=== PATIENT | female | born 1945 | race Caucasian/White ===

== ENCOUNTER → 2016-03-15 | Outpatient (CLI) | payer OTHER | LOC: BHFA 08:30 | PROVIDERS: ATTEND Internal Medicine Cardiovascular Disease | DX: I34.0 Nonrheumatic mitral (valve) insufficiency (principal); I27.2 Other secondary pulmonary hypertension | CPT/HCPCS: 78452; 93017; A9500; J2785 ==

== ENCOUNTER → 2016-03-26 | Outpatient (CLI) | payer OTHER | LOC: BHFA 15:30 | PROVIDERS: ATTEND Internal Medicine | DX: I34.0 Nonrheumatic mitral (valve) insufficiency (principal) ==

== ENCOUNTER 2016-04-19 07:40 | Day surgery (SDC) | payer OTHER ==
[2016-04-19] MEDS ORDERED: FAMOTIDINE 20 MG TAB PO ONE (07:46)
[2016-04-19] MEDS ORDERED: diphenhydrAMINE 25 MG CAP PO ONE (07:46)
[2016-04-19] MEDS ORDERED: DIAZEPAM 5 MG TAB PO ONE (07:46)
[2016-04-19] MEDS ORDERED: NS 1,000 ML IV ONE (07:46)
[2016-04-19] MEDS ORDERED: ASPIRIN EC 325 MG TAB PO ONE (07:46)
--- NOTE | 2016-04-19 08:10 | CPEKG ---
Heart Rate: 61 RR Interval: 984 P-R Interval: 164 QRSD Interval: 96 QT Interval: 416 QTC Interval: 419 P [place]: 73 QRS [place]: 32 T Wave [place]: 37 EKG Severity - NORMAL ECG - EKG Impression: SINUS RHYTHM EKG Impression: DIFFUSE ST DEPRESSION, CONSIDER ISCHEMIA Electronically Signed By: Pattie Valles 19-Apr-2016 10:24:22
[2016-04-19 08:20] LABS: % IMMATURE GRANULYOCYTES 0.2 % (0.0-1.1); ABSOLUTE IMMATURE GRANULOCYTES 0.02 10^3/uL (0.00-0.10); ADD DIFF? NO; ADD MORPH? NO; ADD SCAN? NO; ATYPICAL LYMPHOCYTE FLAG 10 (0-99); FRAGMENT RBC FLAG 0 (0-99); HEMATOCRIT 39.2 % (38.0-47.0); HEMOGLOBIN 13.1 g/dL (12.6-16.3); LEFT SHIFT FLG 0 (0-99); LIPEMIA HEMOLYSIS FLAG 80 (0-99); MEAN CELL HEMOGLOBIN 33.1 pg (27.9-34.1); MEAN CELL HEMOGLOBIN CONCENTR. 33.4 g/dL (32.4-36.7); MEAN PLATELET VOLUME 9.1 fL (8.7-11.7); PLATELET CLUMPS FLAG 0 (0-99); PLATELET COUNT 278 10^3/uL (150-400); RED BLOOD CELL COUNT 3.96 10^6/uL (4.18-5.33); RED CELL DISTRIBUTION WIDTH 13.9 % (11.5-15.2)
[2016-04-19 08:33] LABS: INR 0.94 (0.83-1.16); PROTIME(PATIENT) 12.5 SEC (12.0-15.0)
[2016-04-19 08:38] LABS: ANION GAP 12 mEq/L (8-16); CALCIUM 10.2 mg/dL (8.5-10.4); CARBON DIOXIDE 25 mEq/l (22-31); CHLORIDE 102 mEq/L (97-110); CHOLESTEROL 232 mg/dL (140-220); CREATININE 0.6 mg/dL (0.6-1.0); GLOMERULAR FILTRATION RATE > 60; GLUCOSE 87 mg/dL (70-100); MAGNESIUM 2.2 mg/dL (1.6-2.3); POTASSIUM 4.4 mEq/L (3.5-5.2); SODIUM 139 mEq/L (134-144); TRIGLYCERIDE 95 mg/dL (35-135); VERY LOW DENSITY LIPOPROTEINS 19 mg/dL (8-25)
[2016-04-19] MEDS ORDERED: LIDOCAINE 1% 30 ML SDV ONE (08:45)
[2016-04-19] MEDS ORDERED: IOPAMIDOL (ISOVUE-370) 150 ML BTL IV ONE ×2 (08:45→09:27)
[2016-04-19] MEDS ORDERED: MIDAZOLAM 2 MG/2 ML VIAL ONE (08:45)
[2016-04-19] MEDS ORDERED: fentaNYL 100 MCG/2 ML INJ ONE (08:45)
[2016-04-19 09:02] LABS: CHOLESTEROL/HDL RATIO 1.92 RATIO (1.00-4.44); HIGH DENSITY LIPOPROTEIN 121 mg/dL (40-85); LDL/HDL RATIO 0.76 RATIO (1.00-3.22); LOW DENSITY LIPOPROTEIN 92 mg/dL (80-100); NON-HIGH DENSITY LIPOPROTEIN 111 mg/dL (90-129)
[2016-04-19] MEDS ORDERED: NITROGLYCERIN 0.4 MG BTL SL PRN (09:49)
[2016-04-19] MEDS ORDERED: ATROPINE SULFATE 1 MG/10 ML SYR IVP PRN (09:49)
[2016-04-19] MEDS ORDERED: ONDANSETRON 4 MG/2 ML VIAL IVP PRN (09:49)
[2016-04-19] MEDS ORDERED: OXYCODONE/APAP 5/325 TAB PO PRN (09:49)
[2016-04-19] MEDS ORDERED: HYDROCODONE/APAP 5/325 TAB PO PRN (09:49)
--- NOTE | 2016-04-19 09:53 | PDDXCAT ---
Diagnostic Cath Note - . Date: 04/19/16 Sterile Preparation Technician: Andrea Indication: other (pre valve surgery assessment) - Procedure Access: right groin Procedure: left heart catheterization, coronary angiography, left ventriculogram , right heart catheterization - Materials Left Heart Cath size: 6F Left Heart Cath materials: standard multipack (JL4, JR4, pigtail) Right Heart Cath size: 7F Right Heart Cath materials: PWP catheter - Findings-Left Heart Catheterization LM: Short, quadfurcation into the LAD, ramus, LCX, and a small branch to atrium which feeds a fistula LAD: Medium sized vessel with small diagonal branches. No luminal irregularities noted. LCX: Medium sized vessel with principal obtuse margial, equal in magnitude to the LCX. No luminal irregularities RCA: Small, diminuative vessel without appreciable luminal irregularities noted. Ramus: Small vessel no luminal irregularities noted. EDP: 22 mm Hg LVEF: 65% Wall motion: normal wall motion - Findings-Right Heart Catheterization RA: 6 RV: 54/5/12 PA: 52/21/30 PAOP: 22 AO: 129/57/84 CO: 5.37 CI: 3.39 Complications: none Estimated blood loss: <50ml Closure method: Angioseal (vein was manual pressure closure) Assessment: 70 y/o female with HTN, pHTN (RVSP of ~70 mm Hg), HLP, COPD, psoriasis, and progressive pathology to the mitral valve without appreciable CAD noted on angiogram today. Right heart pressures were elevated, but not impressively on today's study. Fistula was noted with injection to the left system. Normal left ventricular systolic ejection fraction, and mild/moderate MR was noted with ventriculogram. Plan: Patient to maintain follow up with CT surgery (and have second opinion per reports). No critical CAD was noted. As an aside, there was a fistula appreciated on this study. Intervention: none
== END 2016-04-19 13:50 | disposition home or self-care (01) ==
LOC: FCATH 07:40
PROVIDERS: ATTEND Internal Medicine Cardiovascular Disease
PROC: B2151ZZ Fluoroscopy of Left Heart using Low Osmolar Contrast (ICD-10-PCS; principal; 2016-04-19)
PROC: 4A023N8 Measurement of Cardiac Sampling and Pressure, Bilateral, Percutaneous Approach (ICD-10-PCS; principal; 2016-04-19)
PROC: B2111ZZ Fluoroscopy of Multiple Coronary Arteries using Low Osmolar Contrast (ICD-10-PCS; principal; 2016-04-19)
DX: I34.0 Nonrheumatic mitral (valve) insufficiency (principal); R06.00 Dyspnea, unspecified; I27.2 Other secondary pulmonary hypertension; I10 Essential (primary) hypertension; E78.5 Hyperlipidemia, unspecified; I47.1 Supraventricular tachycardia; J44.9 Chronic obstructive pulmonary disease, unspecified; L40.9 Psoriasis, unspecified; Z82.49 Family history of ischemic heart disease and other diseases of the circulatory system; Z87.891 Personal history of nicotine dependence
CPT/HCPCS: C1760; J1644; J2250; J3010; Q9967

== ENCOUNTER → 2017-03-14 | Outpatient (CLI) | payer OTHER | LOC: BHCLAF 11:30 | PROVIDERS: ATTEND Internal Medicine Cardiovascular Disease | DX: R01.1 Cardiac murmur, unspecified (principal) | CPT/HCPCS: 93306-PO ==

== ENCOUNTER 2017-07-08 19:22 | Inpatient (IN) | payer OTHER, MEDICARE ==
--- NOTE | 2017-07-08 19:52 | EDPHY ---
General Time Seen by Provider: 07/08/17 19:41 Narrative: CHIEF COMPLAINT: concerned for blood clot HISTORY OF PRESENT ILLNESS: Patient presents with complaints of concern for blood clot. She has had increasing shortness of breath and some "lower oxygen numbers" intermittently over the past few days. She has decreased exercise capacity. She has increasing hypoxemia throughout the day, which is atypical for her. She typically wears supplemental oxygen only at night. She has no chest pain with exertion. She has complete resolution if she sits down and applies her oxygen. She was seen by primary care physician today with a positive D-dimer and "something on my chest x-ray that was behind my sternum." She was contacted by her PCP office and sent to the emergency department for possible PE. She has no other associated complaints or modifying factors. REVIEW OF SYSTEMS: Ten systems reviewed and are negative unless otherwise noted in the HPI PCP: Dr. Perez SPECIALISTS: Dr. Mendez, cardiology Dr. Haider, pulmonology PAST MEDICAL HISTORY: COPD, mitral valve regurgitation, macular degeneration PAST SURGICAL HISTORY: No recent surgeries SOCIAL HISTORY: Quit smoking 6 years ago. No drug or alcohol use. Lives independently with her spouse. FAMILY HISTORY: Noncontributory EXAMINATION General Appearance: Alert, no distress Head: normocephalic, atraumatic Eyes: Pupils equal and round, no conjunctival pallor or injection ENT, Mouth: Nasal cannula in place. Mucous membranes moist. Airway patent. Neck: Normal inspection, supple, non-tender Respiratory: Mild rhonchi. No wheezing, crackles or diminishment. Cardiovascular: Regular rate and rhythm no murmur Gastrointestinal: Abdomen is soft and nontender Back: non-tender, no bony abnormalities Neurological: A&O, nonfocal, normal gait Skin: Warm and dry, no rash Extremities: Nontender, no pedal edema Psychiatric: Mood and affect normal DIFFERENTIAL DIAGNOSES: Including but not limited to PE, pneumonia, bronchitis, pleurisy, mediastinal mass, adenocarcinoma, CHF MDM: 7:47 p.m. Increasing dyspnea with hypoxemia intermittently. The patient has no chest pain. She is in no acute distress but does have hypoxemia at rest. Her oxygenation is normal with 2 L nasal cannula. She is in no distress, work of breathing is normal and she does not need any positive pressure ventilation. I have ordered an i-STAT and a CT scan to expedite her imaging to rule out PE. I have reviewed her labs and imaging from other today. There is a chest x-ray with a retrosternal mass that is new. There is also evidence of possible CHF. 8:45 p.m. Patient has just returned from scanner. I re-evaluated she is resting comfortably. Vital signs remained stable. 9:10 p.m. Notified by radiologist Dr. Kent. Findings from the CT scan of the chest were discussed as documented. These include no evidence of PE, a pleural mass into the fissure, and possible cardiomyopathy. 9:25 p.m. Patient re-evaluated. Just the laboratory study and CT scan findings including an elevated BNP. She informs me that she last had an echocardiogram in March of this year. 10:20 p.m. Case discussed with hospitalist Dr. stacy. She will outpatient her service. She is admitted in stable condition. SUPERVISION: Patient was independently examined, but I discussed the case with my secondary supervising physician Dr. Kumari - Diagnostics Imaging Results: Imaging Impressions Chest/Thorax CTA 07/08/17 19:52 Impression: No evidence for pulmonary embolic disease. 2. Suspect cardiomyopathy with LAD CAD, but without evidence for acute CHF. 3. Emphysema. No pneumonia. 4. Right chest wall pleurally based mass invading the minor fissure. A PET CT would be helpful to assess for metabolic activity. Although this is new, the patient's old chest x-ray was in 2005. Results discussed with Ambrocio Bean at 9:03 PM. General information for patients regarding this examination can be found at [email or web address]. If you have questions or comments about this report, please contact me at [phone] (hospital) or [phone] (cell). - History Smoking Status: Former smoker - Objective Vital Signs: Initial Vital Signs Temperature (C) 98.1 F 07/08/17 19:30 Heart Rate 82 07/08/17 19:30 Respiratory Rate 20 07/08/17 19:30 Blood Pressure 144/83 H 07/08/17 19:30 O2 Sat (%) 89 L 07/08/17 19:30 O2 Delivery Mode Room Air Allergies/Adverse Reactions: Penicillins Allergy (Verified 07/08/17 19:30) Home Medications: Medication Instructions Recorded Ascorbic Acid [Vitamin C] 1,000 mg PO DAILY 04/19/16 Aspirin 325 mg (*) 325 mg PO DAILY 04/19/16 Calcium 1,000 mg PO DAILY 04/19/16 Mes28-Laf E 200 mg-20 Unit Sfg 200 mg PO DAILY 04/19/16 Glucosamine & Chondroitin Cap PO DAILY 04/19/16 Macuhealth PO DAILY 04/19/16 Multi For Her 50 Plus Softgel PO DAILY 04/19/16 VITAMIN D 1,000 mg PO DAILY 04/19/16 Laboratory Results: Laboratory Results 07/08/17 19:58 07/08/17 07/08/17 07/08/17 20:05 19:58 19:58 WBC 6.45 10^3/uL 10^3/uL (3.80-9.50) RBC 4.28 10^6/uL 10^6/uL (4.18-5.33) Hgb 13.5 g/dL g/dL (12.6-16.3) POC Hgb 15.0 gm/dL gm/dL (12.6-16.3) Hct 41.5 % % (38.0-47.0) POC Hct 44 % % (38-47) MCV 97.0 fL fL (81.5-99.8) MCH 31.5 pg pg (27.9-34.1) MCHC 32.5 g/dL g/dL (32.4-36.7) RDW 13.9 % % (11.5-15.2) Plt Count 316 10^3/uL 10^3/uL (150-400) MPV 9.4 fL fL (8.7-11.7) Neut % (Auto) 57.5 % % (39.3-74.2) Lymph % (Auto) 26.8 % % (15.0-45.0) [place] % (Auto) 10.7 % % (4.5-13.0) Eos % (Auto) 3.9 % % (0.6-7.6) Baso % (Auto) 0.8 % % (0.3-1.7) Nucleat RBC Rel Count 0.0 % % (0.0-0.2) Absolute Neuts (auto) 3.71 10^3/uL 10^3/uL (1.70-6.50) Absolute Lymphs (auto) 1.73 10^3/uL 10^3/uL (1.00-3.00) Absolute Monos (auto) 0.69 10^3/uL 10^3/uL (0.30-0.80) Absolute Eos (auto) 0.25 10^3/uL 10^3/uL (0.03-0.40) Absolute Basos (auto) 0.05 10^3/uL 10^3/uL (0.02-0.10) Absolute Nucleated RBC 0.00 10^3/uL 10^3/uL (0-0.01) Immature Gran % 0.3 % % (0.0-1.1) Immature Gran # 0.02 10^3/uL 10^3/uL (0.00-0.10) POC Sodium 138 mEq/L mEq/L (135-145) POC Potassium 3.8 mEq/L mEq/L (3.3-5.0) POC Chloride 102 mEq/L mEq/L (97-110) POC BUN 15 mg/dL mg/dL (7-23) POC Creatinine 0.8 mg/dL mg/dL (0.6-1.0) POC Glucose 82 mg/dL mg/dL (70-100) Troponin I < 0.012 ng/mL ng/mL (0.000-0.034) NT-Pro-B Natriuret Pep 4640 pg/mL H pg/mL (0-125) Medications Given: Discontinued Medications Sodium Chloride (Ns) 500 mls @ 0 mls/hr IV EDNOW ONE; Wide Open PRN Reason: Protocol Stop: 07/08/17 20:04 Last Admin: 07/08/17 20:32 Dose: 500 mls Point of Care Test Results: 07/08/17 20:05 POC Sodium 138 POC Potassium 3.8 POC Chloride 102 POC BUN 15 POC Creatinine 0.8 POC Glucose 82 Departure - Departure Disposition: [facility] Acute Clinical Impression: Pleural mass, Hypoxemia Dyspnea Qualifiers: Dyspnea type: shortness of breath Qualified Code(s): R06.02 - Shortness of breath; R06.00 - Dyspnea, unspecified; R06.01 - Orthopnea COPD (chronic obstructive pulmonary disease) Qualifiers: COPD type: unspecified COPD Qualified Code(s): J44.9 - Chronic obstructive pulmonary disease, unspecified Condition: Good Referrals: Carla Perez MD [Primary Care Provider] - As per Instructions
[2017-07-08] MEDS ORDERED: NS 500 ML IV ONE (20:03)
[2017-07-08] MEDS ORDERED: IOPAMIDOL (ISOVUE 370) 100 ML BTL IV ONE (20:10)
[2017-07-08 20:20] LABS: PLATELET COUNT 316 10^3/uL (150-400)
--- NOTE | 2017-07-08 20:32 | CPEKG ---
Heart Rate: 71 RR Interval: 845 P-R Interval: 188 QRSD Interval: 90 QT Interval: 412 QTC Interval: 448 P [place]: 81 QRS [place]: 61 EKG Severity - ABNORMAL ECG - EKG Impression: SINUS RHYTHM EKG Impression: PACs EKG Impression: NONSPECIFIC T ABNORMALITIES, LATERAL LEADS Electronically Signed By: Valeriy Kelley 09-Jul-2017 11:44:54
[2017-07-08] MEDS ORDERED: ACETAMINOPHEN 325 MG TAB PO PRN (22:44)
[2017-07-08] MEDS ORDERED: ONDANSETRON 4 MG/2 ML VIAL IVP PRN (22:44)
[2017-07-08] MEDS ORDERED: HYDROCODONE/APAP 5/325 TAB PO PRN (22:44)
[2017-07-08] MEDS ORDERED: IPRATROPIUM/ALBUTEROL 3 ML DEYVIAL IH PRN (22:44)
[2017-07-08] MEDS ORDERED: ALBUTEROL 3 ML DEYVIAL IH PRN (22:44)
[2017-07-09] MEDS: DILTIAZEM 30 MG TAB PO SCH ×4 (00:28→21:01)
[2017-07-09] MEDS: FLUTICASONE/SALMETER 250/50MCG DISKUS IH SCH ×3 (00:29→20:15)
[2017-07-09] MEDS ORDERED: predniSONE 20 MG TAB PO ONE ×2 (00:52→13:07)
[2017-07-09] MEDS: predniSONE 20 MG TAB PO SCH (01:25)
--- NOTE | 2017-07-09 02:38 | GHP ---
[f rep st] HISTORY AND PHYSICAL DATE OF ADMISSION: 07/08/2017 SOURCE: Patient provides history, appears reliable, her EMR was reviewed, and case discussed with [facility] hospitalist provider. CHIEF COMPLAINT: Shortness of breath, hypoxia. HISTORY OF PRESENT ILLNESS: This is a very pleasant 71-year-old female with past medical history sig nificant for COPD with oxygen dependence at bedtime, hypertension, severe pulmonary hypertension, las t RSVP of 70 mmHg, history of psoriasis, NSVT, coronary calcifications with a negative heart catheter ization 2016, and moderate mitral regurgitation, who presents to the emergency department today after a PCP visit with concerns for possible PE. The patient has had increasing shortness of breath for t he past 1-2 weeks. She denies any increased cough or production of sputum. She denies any fevers or chills. Patient has had increased oxygen requirements and increased dyspnea with exertion from her baseline. Her symptoms typically resolve with rest. She has never had any chest pain. No palpitati ons. No lightheadedness or presyncope. The patient was evaluated by PCP today and underwent outpati ent testing with x-ray, and found to have a positive D-dimer, as well as possible retrosternal mass. REVIEW OF SYSTEMS: GENERAL: No fevers, chills. SKIN: Patient with history of psoriasis on her lef t medial knee. She has a new area of erythema that is itching. She has central punctation and she r eports PCP thought perhaps she had an insect bite or spider bite. She denies any fevers, chills. No joint pain. No other rashes or sores reported. She does have some excoriations from a cat scratch. ENT: No congestion, sore throat. EYES: No acute changes in vision or ocular pain. CV: No chest pain, palpitations. RESPIRATORY: Patient with shortness of breath and cough as noted above. GI: No nausea, vomiting, abdominal pain, melena, hematochezia. : No dysuria or hematuria. MUSCULOSKE LETAL: No joint pains, myalgias. NEUROLOGIC: No numbness, tingling, headache, or focal deficits. Remainder of review of systems negative, except as noted above. ALLERGIES: Penicillin. HOME MEDICATIONS: As per EMR. Diltiazem 30 mg p.o. three times daily, atenolol 25 mg p.o. twice kayy ly, clonidine 0.2 mg p.o. at bedtime, rosuvastatin 5 mg p.o. Friday, Friday, Friday, Lasix 20 mg e very 2 days, acitretin 10 mg p.o. daily, potassium chloride 10 mEq p.o. every 2 days, Spiriva inhaler 18 mcg inhaled daily, Advair 250/50 mcg 1 puff inhaled twice daily, vitamin D3 at 1000 units p.o. da yolanda, albuterol/Ventolin inhaler 2 puffs inhaled q.4 hours p.r.n., multivitamin 1 tab p.o. daily, gluc osamine-chondroitin 2 tabs p.o. daily, calcium carbonate 1000 mg p.o. daily, aspirin 325 mg p.o. tyrone y, fish oil 2000 mg p.o. daily, vitamin C 500 mg p.o. daily, CoQ10 200 mg p.o. daily, Macular Health 1 tab p.o. daily. PAST MEDICAL HISTORY: Significant for COPD with oxygen dependence at bedtime; moderate mitral regurg itation; macular degeneration; history of cataracts with a lens replaced on the right; psoriasis; and a history of coronary calcifications on CT, but a negative cardiac cath; history of paroxysmal SVT; pulmonary nodule, left upper lobe, that had been stable; pulmonary hypertension, last [employer] noted of 70 ; hypertension; hyperlipidemia. PAST SURGICAL HISTORY: Cardiac cath, appendectomy, cholecystectomy, tonsillectomy, adenoidectomy, ri ght cataract extraction with lens replacement, and JOHN. FAMILY HISTORY: Significant for NC and hypertension. SOCIAL HISTORY: Patient is , lives with her . She quit smoking in 2011. She drinks a glass of wine with dinner every day. Denies any illicit drug use or marijuana use. CODE STATUS: Full. PHYSICAL EXAMINATION: VITAL SIGNS: Upon arrival to the emergency department, blood pressure 144/83, heart rate was 82, O2 saturation 89% on room air, with temperature of 36.7. CURRENT VITALS: Blood pressure 130/97, heart rate is 99-120s, variable, but nonsustained, sinus tachycardia with PACs, resp iratory rate 17, O2 saturation 93% on 2 L by nasal cannula, with a temperature of 36.4. GENERAL: No acute distress. Chronically ill-appearing female is sitting up on bed, awake, pleasant, slightly anx ious, but in fair spirits. HEAD: Normocephalic, atraumatic. EYES: Extraocular muscles are grossly intact. Pupils equal, round, reactive to light bilaterally and symmetric. Right lens reflex apprec iated. ENT: Mucous membranes are moist. No oropharyngeal erythema or exudates. No nasal discharge . NECK: Supple. Trachea midline. CV: Irregularly irregular rhythm with regular rate in the 80s t o 90s, slightly distant heart sounds. No murmurs appreciated. RESPIRATORY: Unlabored breathing, qu ite diminished on the right compared to the left. Bibasilar crackles are present. No wheezes or rho nchi appreciated. ABDOMEN: Positive bowel sounds, soft, nontender to palpation. No rebound, guardi ng, or masses appreciated. : No suprapubic tenderness to palpation. No Dodson catheter in place. EXTREMITIES: No cyanosis, clubbing, or edema appreciated. 1+ pedal pulses bilaterally and symmetric . MUSCULOSKELETAL: Patient able to sit up independently. Strength grossly normal. Strength 5/5 in upper and lower extremities while lying on bed. NEUROLOGIC: Grossly nonfocal. No facial drooping. Cranial nerves 2 through 12 intact and symmetric bilaterally. Moves extremities as noted above. S KIN: Patient with a few healing excoriations, bilateral lower extremities. On the left medial knee, there is a punctate area with surrounding erythema. No central clearing yet. Patient denies any pa in. No induration or fluctuance. PSYCHIATRIC: Patient does appear a little bit anxious. Concerned about plans for further evaluation of pleural mass, but overall thought process, content, and questi ons are all appropriate, and she is pleasant and cooperative. LABORATORY STUDIES: 1. WBC 6.45, H and H are 13.5, 41.5, MCV of 97, platelet count of 316. No bands. 2. Sodium is 138, potassium is 3.8, chloride 102, CO2 is unlisted, BUN 15, creatinine is 0.8, glucos e 82. Troponin is negative, BTNP is 4640. 3. EKG, reviewed myself, shows sinus rhythm with nonspecific T-wave changes in the inferior leads. PACs. Rate in the 70s. QTc is 436. IMAGING STUDIES: Report and image reviewed myself. CT/CTA of the chest negative for evidence of PE. Cardiomyopathy without evidence acute CHF. Emphysema. No pneumonia. Greatest involvement of the emphysema in the upper lobes. Right chest wall: Pleurally base mass invading the minor fissure. Chest x-ray from earlier in the day. Report and image reviewed, showing new cardiomegaly and pulmona ry vascular plethora. New anterior retrosternal soft tissue mass. ASSESSMENT AND PLAN: Pleasant 71-year-old female with past medical history significant for oxygen-de pendent emphysema, mitral regurgitation, hypertension, pulmonary hypertension, who presents to the em ergency department with increasing dyspnea, hypoxia, and findings of intrathoracic mass. 1. Pleural-based mass on the right along the right chest wall. The patient will be made n.p.o., exc ept for sips and medications. Further discussion with Radiology and Pulmonology, as per day team, fo r coordinated plan for tissue sampling. The patient's primary verify rep is Dr. Haider. 2. Chronic obstructive pulmonary disease with exacerbation. Patient with progressive dyspnea and hy poxia more than baseline. We will go ahead and provide patient with a dose of oral prednisone at thi s time, nebulizers, and inhaled steroids to be continued. Continue to titrate oxygen down as tolerat ed. Incentive spirometry as tolerated. 3. Cardiomegaly. Patient with known mitral regurgitation and pulmonary hypertension. The patient r eports a recent echocardiogram with Dr. Mendez. She does not appear decompensated radiographically o r clinically. Hold off on diuretic therapy for tonight. 4. Acute on chronic hypoxic respiratory failure. Continue supplemental oxygen, COPD treatment as no meryl above. Hold off on antibiotic therapy at this time. Patient is afebrile and white count is with in normal limits. 5. Tachycardia with premature atrial contractions. Patient with a rise in heart rate after my visit . She does appear slightly anxious regarding her new diagnosis. She did just receive her clonidine and diltiazem this evening. We will continue to monitor on telemetry. 6. Benign essential hypertension. Medications as noted above. 7. Hyperlipidemia. Resume patient's statin when med rec is available. 8. Fluid, electrolytes, nutrition. Hold off on IV fluids. Patient is tolerating oral intake at thi s point. We will continue sips and otherwise n.p.o. until plan is established per #1. Electrolytes monitored, replacement if needed. 9. Prophylaxis. SCDs. Holding anticoagulation pending decision on potential tissue sampling as abo ve. 10. Code status is full. DISPOSITION: Patient admitted to inpatient status at this time. Initially, patient will require man agement of her respiratory issues and stabilization, in addition to further evaluation of this new pl eural mass. Anticipate greater than 2-midnight stay. /[id number]/MODL
[2017-07-09 04:30] LABS: PLATELET COUNT 274 10^3/uL (150-400)
[2017-07-09] MEDS: TIOTROPIUM INHALER 18 MCG/DOSE 5 DOSE/MDI IH SCH (09:00)
[2017-07-09] MEDS ORDERED: FUROSEMIDE 20 MG TAB PO SCH (09:45)
[2017-07-09] MEDS ORDERED: POTASSIUM CL 10 MEQ TAB PO SCH (09:45)
[2017-07-09] MEDS: ASPIRIN EC 325 MG TAB PO SCH (11:09)
[2017-07-09] MEDS: CHOLECALCIFEROL VIT D3 1,000 UNITS TAB PO SCH (11:09)
[2017-07-09] MEDS: OMEGA-3 FATTY ACIDS 1,000 MG CAP PO SCH (11:09)
[2017-07-09] MEDS: MULTIVITAMINS 1 EACH TAB PO SCH (11:10)
[2017-07-09] MEDS: ASCORBIC ACID 500 MG TAB PO SCH (11:10)
[2017-07-09] MEDS: CALCIUM CARBONATE 500 MG TAB PO SCH (11:10)
[2017-07-09] MEDS ORDERED: ROSUVASTATIN CALCIUM 10 MG TAB PO SCH (12:00)
--- NOTE | 2017-07-09 12:44 | PDMN ---
Medical Necessity Medical necessity: Pt meets IP criteria per MD; est los >2 mn for eval/tx of acute on chronic respiratory failure, COPD exacerbation, cardiomegaly, tachycardia w/PACs & new pleural-based mass; admit for further workup/cardiac monitoring, Radiology/Pulmonology consults & respiratory supportive care; hx emphysema, mitral regurgitation, HTN, pulmonary HTN; per H&P & order 07/08/17
[2017-07-09] MEDS: ACITRETIN 10 MG PO SCH (13:36)
--- NOTE | 2017-07-09 14:10 | ASMTCMCOM ---
CM Note CM Note Notes: 07/09/2017 Case Management Note Discussed pt during rounds this morning. Pt admited with a new pleural mass, acute cadiomyopathy and hypoxemia. There are no therapy evals ordered at this time. Pt is and lives independently. Case Management d/c poc: anticipating independent with follow up as directed. Case Management available if needs change. Date Signed: 07/09/2017 02:09 PM Electronically Signed By:Tarah Reyes RN
[2017-07-09] MEDS: GLUCOSAMINE/CHONDROITIN CAP PO SCH (14:21)
--- NOTE | 2017-07-09 18:41 | HOSPPROG ---
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 Will continue ongoing bronchodilators and steroids here. She is able to ambulate somewhat better than before she came in but is requiring 24 hr oxygen at this time compared to nocturnal at home I reviewed her CT images in detail with Dr. Mike Shah. I have also reviewed the report from a CT scan that she had done several days ago at [facility] which indicated some right-sided pleural thickening it sounds like it is in the same location as the current abnormality on CT scan. However it does not describe any extension of that process into the interlobar septal which I do see on yesterday's CT scan here. As we are unable to compare the images directly and we are unable to get those images made available now we are going to recommend that she obtain images from [facility] and take them in with Dr. Haider in the clinic to compare with the current study. At the present time the process appears to be progressing, if at all, at a very slow and non aggressive pace. There is no indication for urgent biopsy at this time for this pleural based disease it has not spread into bone or parenchyma of the lung. PLANS: -continue bronchodilators and oral steroids -increase activity as tolerated -will continue treatment here in the hospital at this point as her COPD warrants inpatient care -of asked her to trying get images from her most recent CT scan at outside hospital on a disc to compare to the present CT which they can do with Dr. Haider in clinic This patient was seen by me today on multidisciplinary rounds as well as hospitals rounds. I spent greater than 45 min today with this patient and at the bedside and this time is all in addition to the some time spent earlier today by Dr. Maci moreau on her admission visit SUBJECTIVE: Some improvement in dyspnea but still having trouble ambulating despite wearing oxygen No chest pain or cough OBJECTIVE Vitals reviewed: Stable here so far without fever Toddler Guide, my review: Sinus Exam: alert oriented skin warm dry color ok resps mildly labored at rest on oxygen lungs very diminished but otherwise clear BSs heart regular abd soft nondistended nontender, bowel sounds present limbs warm, no edema iv site ok I reviewed her chest CT scan images from last night with Dr. Mike Shah of pulmonology. There is evidence of chronic obstructive disease. There is no acute pneumonia or heart failure or effusion. There is an area of chronic appearing pleural thickening focally in the right anterolateral chest wall. This process appears to now extend into the interlobar fissures in the right lung to a small degree but is not causing any atelectasis or other changes in the lung parenchyma. Objective: Vital Signs Temp Pulse Resp BP Pulse Ox 36.3 C 105 H 15 120/78 96 07/09/17 15:51 07/09/17 15:51 07/09/17 15:51 07/09/17 15:51 07/09/17 15:51 Laboratory Results 07/09/17 04:10 07/09/17 04:10 07/08/17 07/09/17 07/10/17 06:59 06:59 06:59 Intake Total 740 Output Total 800 400 Balance -60 -400 ICD10 Worksheet Patient Problems: Problems Problem Status Onset COPD (chronic obstructive pulmonary disease) Acute Dyspnea Acute Hypoxemia Acute Pleural mass Acute
[2017-07-10] MEDS: MULTIVITAMINS 1 EACH TAB PO SCH (09:02)
[2017-07-10] MEDS: predniSONE 20 MG TAB PO SCH (09:03)
[2017-07-10] MEDS: ASCORBIC ACID 500 MG TAB PO SCH (09:03)
[2017-07-10] MEDS: CHOLECALCIFEROL VIT D3 1,000 UNITS TAB PO SCH (09:03)
[2017-07-10] MEDS: DILTIAZEM 30 MG TAB PO SCH ×2 (09:03→15:46)
[2017-07-10] MEDS: ASPIRIN EC 325 MG TAB PO SCH (09:03)
[2017-07-10] MEDS: FLUTICASONE/SALMETER 250/50MCG DISKUS IH SCH (09:04)
[2017-07-10] MEDS: CALCIUM CARBONATE 500 MG TAB PO SCH (09:04)
[2017-07-10] MEDS: TIOTROPIUM INHALER 18 MCG/DOSE 5 DOSE/MDI IH SCH (09:04)
[2017-07-10] MEDS: ACITRETIN 10 MG PO SCH (12:57)
[2017-07-10] MEDS: GLUCOSAMINE/CHONDROITIN CAP PO SCH (15:46)
[2017-07-10] MEDS: OMEGA-3 FATTY ACIDS 1,000 MG CAP PO SCH (15:46)
[2017-07-10 16:21] VITALS: BP 158/82
--- NOTE | 2017-07-10 17:14 | PDDCSUM ---
Discharge Summary Discharge Summary: DISCHARGE DIAGNOSES: -COPD exacerbation -acute hypoxemic respiratory failure -possible enlargement of chronic pleural thickening in the right anterior chest based on CT, prior CTs unavailable for review and comparison during this hospitalization PROCEDURES: CT scan of chest with contrast showing absence of pulmonary emboli or pneumonia , question of progression of known chronic right pleural thickening HOSPITAL COURSE SUMMARY: This patient has long history of known not oxygen dependent COPD. She comes in with acute exacerbation with worsening dyspnea, inability to ambulate, and hypoxemia. There is no evidence of infection or heart failure. She had been taking all of her inhalers reliably. Patient was brought in the hospital and treated with prednisone and nebulized bronchodilators. She had a very good response and now is able to walk around her room without oxygen and walk in the hallway with oxygen. She does have oxygen at home but typically only uses it at night. This point she feels comfortable going back home. She did not require any diuresis. She does have known pulmonary hypertension. CT scan was done in the ER to assess for possible PE. Incidentally noted was possible increase in the dimensions of some pleural thickening that has been known for several years in the right chest. This was evaluated in the past by CT scans at the [facility], and we did not have the ability to do comparison of the images at this time. Therefore I had this hospital prepare a CD of her CT images from this stay and she will is obtaining the most recent CT images from [facility] and she will go to her credit coordinator Dr. Haider to reassess these to determine whether anything needs to be done. Overall my review of the CT images here does not show me what looks like any kind of very aggressive disease process a but will check either way. PENDING TEST RESULTS: None MEDICATION CHANGES: Prednisone 60 mg for 1 week then 40 mg for a week then 20 mg for week at which time she follows up with Dr. Haider FOLLOW-UP PLAN: With Dr. Haider on August 01 With her smelter liner on July 14 Greater than 35 minutes bedside and care coordination time today
--- NOTE | 2017-07-10 17:26 | ASDISCHSUM ---
Discharge Information Plan Status:Home with No Needs Medically Cleared to Leave:07/10/2017 Discharge Date:07/10/2017 CM D/C Disposition:Home, Routine, Self-Care ADT D/C Disposition:Home, Routine, Self-Care Projected Discharge Date:07/10/2017 Transportation at D/C:Family Discharge Delay Reason: Follow-Up Date:07/10/2017 Discharge Slot: Final Diagnosis: Placement Information Patient Contact Information Contact Name:VICENTA Relationship:Jordan Address:[address] City:[place] Alternate Phone: [facility]/Zip Code:[place] [address] Email: Financial Information Financial Class:Medicare Primary Plan Desc:MEDICARE INPATIENT Primary Plan Number:[id number] Secondary Plan Desc:CHER/ARLENE SUPPLEMENT Secondary Plan Number:[id number] Assessment Information LACE LACE Length of stay for Answers: 1 day current admission Acuity / Level of Answers: Yes Care: Did the patient have an inpatient admission? Comorbidities - select Answers: Chronic pulmonary disease all that apply Other Notes: HTN # of Emergency department Answers: 1-2 visits in the last 6 months Score: 8 Date Signed: 07/10/2017 05:23 PM Electronically Signed By:Tarah Reyes RN [facility] CM Progress Note CM Note CM Note Notes: 07/09/2017 Case Management Note Discussed pt during rounds this morning. Pt admited with a new pleural mass, acute cadiomyopathy and hypoxemia. There are no therapy evals ordered at this time. Pt is and lives independently. Case Management d/c poc: anticipating independent with follow up as directed. Case Management available if needs change. Date Signed: 07/09/2017 02:09 PM Electronically Signed By:Tarah Reyes RN Case Management Discharge Plan Note Case Management Discharge Discharge Order Complete? Answers: Yes Patient to Obtain Answers: Independently Medications Discharge Comments Notes: 07/10/2017 Case Management Note Pt to d/c independent with follow up as directed. Transitional Care to follow after d/c. Date Signed: 07/10/2017 05:25 PM Electronically Signed By:Tarah Reyes RN Intervention Information
== END 2017-07-10 18:07 | disposition home or self-care (01) | DRG 190 ==
LOC: F2W 23:36
PROVIDERS: ADMIT Family Medicine; ATTEND Family Medicine
DX: J44.1 Chronic obstructive pulmonary disease with (acute) exacerbation (principal); J96.01 Acute respiratory failure with hypoxia; I27.20 Pulmonary hypertension, unspecified; E86.9 Volume depletion, unspecified; I34.0 Nonrheumatic mitral (valve) insufficiency; I10 Essential (primary) hypertension; E78.5 Hyperlipidemia, unspecified; Z99.81 Dependence on supplemental oxygen; Z87.891 Personal history of nicotine dependence; Z82.49 Family history of ischemic heart disease and other diseases of the circulatory system
CPT/HCPCS: 71046-PO; 82947-QW; J7512; Q9967

== ENCOUNTER → 2017-07-08 | Outpatient (CLI) | payer OTHER, MEDICARE | LOC: CIMAGING 16:40 | PROVIDERS: ATTEND Family Medicine | DX: J44.9 Chronic obstructive pulmonary disease, unspecified (principal); I28.8 Other diseases of pulmonary vessels; R22.2 Localized swelling, mass and lump, trunk | CPT/HCPCS: 71046-PO ==

== ENCOUNTER → 2018-04-10 | Outpatient (CLI) | payer OTHER, MEDICARE | LOC: BHCLAF 14:00 | PROVIDERS: ATTEND Internal Medicine Cardiovascular Disease | DX: R01.1 Cardiac murmur, unspecified (principal); J44.9 Chronic obstructive pulmonary disease, unspecified | CPT/HCPCS: 93306-PO ==

== ENCOUNTER 2018-05-13 08:44 | Day surgery (SDC) | payer OTHER, MEDICARE ==
[2018-05-13] MEDS ORDERED: diphenhydrAMINE 25 MG CAP PO ONE (08:46)
[2018-05-13] MEDS ORDERED: DIAZEPAM 5 MG TAB PO ONE (08:46)
[2018-05-13] MEDS ORDERED: ASPIRIN EC 325 MG TAB PO ONE (08:46)
[2018-05-13] MEDS ORDERED: FAMOTIDINE 20 MG TAB PO ONE (08:46)
[2018-05-13] MEDS ORDERED: NS 1,000 ML IV ONE (08:46)
[2018-05-13] MEDS ORDERED: LIDOCAINE 1% 300 MG/30 ML SDV ONE (09:00)
[2018-05-13] MEDS ORDERED: MIDAZOLAM 2 MG/2 ML VIAL ONE ×2 (09:01→10:33)
[2018-05-13] MEDS ORDERED: IOPAMIDOL (ISOVUE-370) 150 ML BTL IV ONE (09:01)
[2018-05-13] MEDS ORDERED: fentaNYL 100 MCG/2 ML INJ ONE ×2 (09:01→10:33)
--- NOTE | 2018-05-13 09:10 | CPEKG ---
Test Reason : OPEN Blood Pressure : / mmHG Vent. Rate : 073 BPM Atrial Rate : 074 BPM P-R Int : 152 ms QRS Dur : 086 ms QT Int : 403 ms P-R-T Axes : 069 033 089 degrees QTc Int : 444 ms Sinus rhythm Ventricular premature complex Probable left atrial enlargement Nonspecific ST depression diffusely Confirmed by Ruperto Tee ([id number]) on 05/13/2018 9:09:53 AM Referred By: Aaron Mendez Confirmed By:Ruperto Tee
[2018-05-13 09:23] LABS: PLATELET COUNT 232 10^3/uL (150-400)
[2018-05-13 09:32] LABS: INR 0.91 (0.83-1.16); PROTIME(PATIENT) 11.9 SEC (12.0-15.0)
--- NOTE | 2018-05-13 09:42 | PDPROPOC ---
Sedation Plan of Care Sedation Plan of Care: vital signs stable, mental status noted, patient educated of risks, benefits, alternatives, patient can tolerate sedation ASA Classification: ASA 2 Planned drugs: fentanyl, midazolam Mallampati Score: Class 1 Mallampati Reference Image: Patient passed 3-3-2 rule?: Yes
--- NOTE | 2018-05-13 09:42 | PDHPUP ---
History & Physical Update H&P update statement: This history and physical update is based on an assessment of the patient which was completed after admission or registration (within 24 hours), but prior to the surgery/procedure. H&P update: H&P reviewed & patient examined, no change in patient's condition since H&P completed H&P changes: Dr. Juan A Chakraborty's outpatient office note was reviewed with the patient this morning. Plans for robotic MVr/MVR in coming weeks.
--- NOTE | 2018-05-13 11:07 | PDDXCAT ---
Diagnostic Cath Note - . Date: 05/13/18 Stonework Tracer: Andrea Indication: other (pending robotic MVR/MVr) - Procedure Access: right groin Procedure: left heart catheterization, coronary angiography, left ventriculogram , right heart catheterization - Materials Left Heart Cath size: 6F Left Heart Cath materials: standard multipack (JL4, JR4, pigtail) Right Heart Cath size: 7F Right Heart Cath materials: PWP catheter - Findings-Left Heart Catheterization LM: Short vessel with trifurcation into the LAD, Ramus, and LCX. No luminal irregularities were noted. There is an anomolous take off from the superior aspect of the LM with LA fistula LAD: Medium diameter vessel. No clear luminal irregularities were noted. Smallish D1. Tortuosity is appreciated in the mid potion of the vessel. LCX: Large vessel with a large principal OM1 and large OM2 which supplies the PDA territory. No luminal irregularities were noted. Distal tortuosity is noted. RCA: Smallish vessel, no luminal irregularities were noted. Non dominant vessel. Ramus: Small to medium diameter vessel. No luminal irregularities were noted. EDP: 12 mm Hg LVEF: 60% Wall motion: normal wall motion - Findings-Right Heart Catheterization RA: 9/8 6 RV: 60/-3 PA: 54/18 34 PAOP: 12 AO: 100/41 65 CO: 4.81 l/min CI: 3.12 l/min/m^2 Complications: none Estimated blood loss: <50ml Closure method: manual pressure Assessment: Patient is a 72 y/o female with progressive failure of the mitral valve with pending need for surgical intervention. No coronary artery disease was noted. Right heart pressures with normal PAOP noted, but elevated RV/PA pressures. Plan: Proceed with surgical plans as delineated Intervention: none Patient Problems: Problems Problem Status Onset COPD (chronic obstructive pulmonary disease) Acute Dyspnea Acute Hypoxemia Acute Pleural mass Acute chronic disease mgmt/transitional care Acute
[2018-05-13] MEDS ORDERED: ATROPINE SULFATE 1 MG/10 ML SYR ONE (11:14)
[2018-05-13] MEDS ORDERED: ATROPINE SULFATE 1 MG/10 ML SYR IVP PRN (12:11)
[2018-05-13] MEDS ORDERED: ONDANSETRON 4 MG/2 ML VIAL IVP PRN (12:11)
[2018-05-13] MEDS ORDERED: OXYCODONE/APAP 5/325 TAB PO PRN (12:11)
[2018-05-13] MEDS ORDERED: NITROGLYCERIN 0.4 MG BTL SL PRN (12:11)
[2018-05-13] MEDS ORDERED: HYDROCODONE/APAP 5/325 TAB PO PRN (12:11)
== END 2018-05-13 17:51 | disposition home or self-care (01) ==
LOC: FCATH 08:44
PROVIDERS: ATTEND Internal Medicine Cardiovascular Disease
DX: I34.0 Nonrheumatic mitral (valve) insufficiency (principal); I07.1 Rheumatic tricuspid insufficiency; I10 Essential (primary) hypertension; J44.9 Chronic obstructive pulmonary disease, unspecified; I27.20 Pulmonary hypertension, unspecified; E78.5 Hyperlipidemia, unspecified; R91.1 Solitary pulmonary nodule
CPT/HCPCS: J0461; J2250; J3010; Q9967

== ENCOUNTER 2018-06-22 05:52 | Inpatient (IN) | payer OTHER, MEDICARE ==
[2018-06-22] MEDS ORDERED: DOBUTamine 500 MG in D5W 250 ML IV SCH (06:00)
[2018-06-22] MEDS ORDERED: DOBUTamine/DEXTROSE 250 ML IV SCH (06:00)
[2018-06-22] MEDS ORDERED: CARDIOPLEGIC SOLUTION 1,052.8 ML PF ONE (06:00)
[2018-06-22] MEDS ORDERED: MANNITOL 25% 12.5 GM/50 ML VIAL IVP ONE (06:00)
[2018-06-22] MEDS ORDERED: NOREPINEPHRINE BITARTRATE 16 MG in NS 250 ML IV ONE (06:00)
[2018-06-22] MEDS ORDERED: INSULIN REGULAR HUMAN 100 UNIT in NS 100 ML IV ONE (06:00)
[2018-06-22] MEDS ORDERED: PHENYLEPHRINE HCL 50 MG in NS 250 ML IV ONE (06:00)
[2018-06-22] MEDS ORDERED: CITRATE DEXTROSE SOLN 500 ML BAG MISC ONE (06:24)
[2018-06-22] MEDS ORDERED: AMINOCAPROIC ACID 5 GM/20 ML VIAL IV ONE (06:24)
[2018-06-22] MEDS ORDERED: PROTAMINE SULFATE 50 MG/5 ML VIAL IVP ONE (06:24)
[2018-06-22] MEDS ORDERED: ceFAZolin 2 GM/DEXTROSE 100 ML IV ONE (06:24)
[2018-06-22] MEDS ORDERED: MUPIROCIN 2% 22 GM OINT NS ONE (06:24)
[2018-06-22] MEDS ORDERED: LR 1,000 ML IV ONE (06:25)
[2018-06-22] MEDS ORDERED: NA BICARBONATE 50 MEQ/50 ML VIAL ONE ×2 (06:25→10:50)
[2018-06-22] MEDS ORDERED: CALCIUM CHLORIDE 1 GM/10 ML INJ ONE (06:25)
[2018-06-22] MEDS ORDERED: AMINOCAPROIC ACID 5 GM/20 ML VIAL ONE (06:25)
[2018-06-22] MEDS ORDERED: MILRINONE/DEXTROSE/100 ML BAG IV ONE (06:25)
[2018-06-22] MEDS ORDERED: ALBUMIN 5% 250 ML BOTTLE IV ONE ×2 (06:25→12:33)
[2018-06-22] MEDS ORDERED: CITRATE DEXTROSE SOLN 500 ML BAG ONE (06:26)
[2018-06-22] MEDS ORDERED: LIDOCAINE 2% 100 MG/5 ML SYR ONE ×2 (06:26→07:24)
[2018-06-22] MEDS ORDERED: AMIODARONE HCL 150 MG/3 ML VIAL ONE (06:26)
[2018-06-22] MEDS ORDERED: niCARdipine/NACL/200 ML BAG IV ONE (06:26)
[2018-06-22] MEDS ORDERED: DOPamine/DEXTROSE 400 MG/250 ML BAG IV ONE (06:26)
[2018-06-22] MEDS ORDERED: HEPARIN 10,000 UNIT/10 ML MDV (1,000 UNIT/ML) ONE (06:26)
[2018-06-22] MEDS ORDERED: ceFAZolin 1 GM VIAL ONE (06:27)
[2018-06-22] MEDS ORDERED: methylPREDNISolone SOD SUCC 1 GM/8 ML VIAL ONE (06:27)
[2018-06-22] MEDS ORDERED: NITROGLYCERIN/D5W 50 MG/250 ML BOTTLE IV ONE (06:27)
[2018-06-22] MEDS ORDERED: MAGNESIUM SULFATE 1 GM/2 ML VIAL ONE (06:27)
[2018-06-22] MEDS ORDERED: ADENOSINE 6 MG/2 ML VIAL ONE (06:27)
[2018-06-22] MEDS ORDERED: MIDAZOLAM 2 MG/2 ML VIAL IVP ONE (06:52)
--- NOTE | 2018-06-22 06:55 | PDANEPAE ---
ANE History of Present Illness Roshniinci MVR for MR MENDOZA Past Medical History - Cardiovascular History Hx Hypertension: Yes Hx Arrhythmias: No Hx Chest Pain: No Hx Coronary Artery / Peripheral Vascular Disease: Yes Hx CHF / Valvular Disease: Yes Hx Palpitations: Yes Cardiovascular History Comment: CAD. htn. mitral regurgitation. PSVT. pulm htn. followed by [facility] - Pulmonary History Hx COPD: Yes Hx Asthma/Reactive Airway Disease: No Hx Recent Upper Respiratory Infection: No Hx Oxygen in Use at Home: Yes O2 in Use at Home (L/minute): 2L at noc Hx Sleep Apnea: No Sleep Apnea Screening Result - Last Documented: Negative Pulmonary History Comment: GURU triggers. pulm nodules - Neurologic History Hx Cerebrovascular Accident: No Hx Seizures: No Hx Dementia: No - Endocrine History Hx Diabetes: No - Renal History Hx Renal Disorders: No - Liver History Hx Hepatic Disorders: No - Neurological & Psychiatric Hx Hx Neurological and Psychiatric Disorders: Yes Neurological / Psychiatric History Comment: depression - Cancer History Hx Cancer: No - Congenital Disorder History Hx Congenital Disorders: No - GI History Hx Gastrointestinal Disorders: No - Other Health History Other Health History: wears reading glasses. psoriasis - Chronic Pain History Chronic Pain: No - Surgical History Prior Surgeries: heart cath 05/13/18. tonsillectomy. pb ANE Review of Systems Review of Systems: - Exercise capacity METS (RN): 3 METS ANE Patient History - Allergies Allergies/Adverse Reactions: Penicillins Allergy (Verified 06/08/18 10:34) possibly as a child - Home Medications Home Medications: RX: Acitretin [Soriatane] 10 mg PO DAILY@12 07/08/17 [Last Taken 07/08/17] RX: Atenolol [Tenormin 50 mg (*)] 12.5 - 25 mg PO BID@,18 07/08/17 [Last Taken 06/21/18] RX: Calcium Carbonate [Oyster Shell Calcium 500 mg (*)] 1,000 mg PO DAILY [Last Taken 06/15/18] RX: Cholecalciferol Vit D3 [Vitamin D3 (*)] 1,000 units PO DAILY 07/08/17 [Last Taken 06/15/18] RX: Diltiazem [Cardizem Ir Q6hr] 30 mg PO BID 07/08/17 [Last Taken 05/13/18] RX: Fluticasone/Salmeter 250/50Mcg [Advair 250/50 (*)] 1 puffs IH BID 07/08/17 [ Last Taken 06/22/18] RX: Furosemide [Lasix 20 MG (*)] 20 mg PO Q2D 07/08/17 [Last Taken 06/18/18] RX: Herbals/Supplements -Info Only 1 ea PO DAILY 07/08/17 [Last Taken 06/15/18] RX: Bozman-3 Fatty Acids [Fish Oil 1000 mg (*)] 2,000 mg PO DAILY@12 07/08/17 [ Last Taken 06/15/18] RX: Potassium Cl [Klor-Con 10 meq (RX)] 10 meq PO Q2D 07/08/17 [Last Taken 06/18] RX: Rosuvastatin Calcium 5 mg PO MWF@12 07/08/17 [Last Taken 06/16/18] RX: Tiotropium Inhaler [Spiriva Inhaler (RX)] 18 mcg IH DAILY 07/08/17 [Last Taken 06/22/18] RX: clonIDINE [Catapres (*)] 0.2 mg PO HS 07/08/17 [Last Taken 06/21/18] Aspirin [Aspirin 81mg (*)] 81 mg PO DAILY 05/06/18 [Last Taken 06/15/18] Glucosamine/Chondroitin [Glucosamine/Chondroitin (*)] 2 each PO DAILY 05/06/18 [ Last Taken 06/15/18] Multivitamins W-Minerals [Thera M Plus Tablet (*)] 1 each PO DAILY 05/06/18 [ Last Taken 06/15/18] Albuterol [Proventil Inhaler HFA (*)] 2 puffs IH Q4 PRN 06/05/18 [Last Taken ] Ascorbic Acid [Vitamin C 500 mg (*)] 1,000 mg PO DAILY 06/05/18 [Last Taken 07/29] Clobetasol 0.05% [Temovate Cream] 1 dhiraj TP BID PRN 06/05/18 [Last Taken Unknown] - NPO status NPO Since - Liquids (Date): 06/21/18 NPO Since - Liquids (Time): 22:00 NPO Since - Solids (Date): 06/21/18 NPO Since - Solids (Time): 19:00 - Anes Hx Anes Hx: no prior problems - Smoking Hx Smoking Status: Former smoker - Alcohol Use Alcohol Use: None - Family Anes Hx Family Anes Hx: none Family Hx Anesthesia Complications: none ANE Labs/Vital Signs - Vital Signs Blood Pressure: 144/73 Heart Rate: 82 Respiratory Rate: 16 O2 Sat (%): 96 Height: 160.02 cm Weight: 52.617 kg ANE Physical Exam - Airway Neck exam: FROM Mallampati Score: Class 2 Mouth exam: poor dentition, small mouth opening - Pulmonary Pulmonary: reduced air movement, expiratory wheeze - Cardiovascular Cardiovascular: regular rate and rhythym - ASA Status ASA Status: IV ANE Anesthesia Plan Anesthesia Plan: general endotracheal anesthesia Lines/Monitors: arterial line, central line, JOHN Specialized Airway: double lumen tube
--- NOTE | 2018-06-22 06:58 | PDHPUP ---
History & Physical Update H&P update statement: This history and physical update is based on an assessment of the patient which was completed after admission or registration (within 24 hours), but prior to the surgery/procedure. H&P update: no change in patient's condition since H&P completed
[2018-06-22] MEDS ORDERED: fentaNYL 250 MCG/5 ML INJ ONE (07:23)
[2018-06-22] MEDS ORDERED: PROPOFOL/EMULSION 500 MG/50 ML BOTTLE IV ONE (07:23)
[2018-06-22] MEDS ORDERED: DEXAMETHASONE 4 MG/ML VIAL ONE ×2 (07:23)
[2018-06-22] MEDS ORDERED: ROCURONIUM 100 MG/10 ML VIAL ONE (07:23)
[2018-06-22] MEDS ORDERED: MIDAZOLAM 2 MG/2 ML VIAL ONE (07:23)
[2018-06-22] MEDS ORDERED: REMIFENTANIL HCL 1 MG VIAL ONE (07:23)
[2018-06-22] MEDS ORDERED: ONDANSETRON 4 MG/2 ML VIAL ONE (07:23)
[2018-06-22] MEDS ORDERED: ePHEDrine SULFATE 25 MG/5 ML SYR ONE (07:23)
[2018-06-22] MEDS ORDERED: PHENYLEPHRINE HCL 100 MCG/ML SYR ONE (07:23)
[2018-06-22] MEDS ORDERED: LIDOCAINE HCL 160 MG/4 ML LTA KIT TP ONE ×2 (07:24→13:38)
[2018-06-22] MEDS ORDERED: LIDOCAINE 2% JELLY 6 ML TOPICAL SYR ONE (07:33)
[2018-06-22] MEDS ORDERED: niCARdipine/NACL 200 ML IV ONE (08:21)
[2018-06-22] MEDS ORDERED: VASOPRESSIN 20 UNIT/ML VIAL ONE (10:17)
[2018-06-22] MEDS ORDERED: DEXMEDETOMIDINE HCL 400 MCG in NS 100 ML IV SCH (12:00)
--- NOTE | 2018-06-22 13:52 | POSTOPPROG ---
Post Op Note Date of Operation: 06/22/18 Surgeon: Jaycob Chakraborty Assistant: Jamie Anesthesiologist: Emerson Anesthesia: GET(General Endotracheal) Pre-op Diagnosis: severe MR Post-op Diagnosis: as above Procedure: robotic assisted MVRepair Inf/Abcess present in the surg proc area at time of surgery?: No Depth: Organ Space EBL: 100-500 Complications: none Drains: Other (right pleura chest tube) Specimen(s): none
[2018-06-22] MEDS ORDERED: MEPERIDINE 25 MG/0.5 ML AMP IVP PRN (13:54)
[2018-06-22] MEDS ORDERED: POTASSIUM Cl (KCl) 50 ML IV PRN (13:54)
[2018-06-22] MEDS ORDERED: SODIUM CL NASAL 45 ML BTL EACHNARE PRN (13:54)
[2018-06-22] MEDS ORDERED: POLYETHYLENE GLYCOL 3350 17 GM PKT PO PRN (13:54)
[2018-06-22] MEDS ORDERED: LACTULOSE 20 GM/30 ML UDCUP PO PRN (13:54)
[2018-06-22] MEDS ORDERED: CEPACOL LOZENGE PO PRN (13:54)
[2018-06-22] MEDS ORDERED: fentaNYL 100 MCG/2 ML INJ IVP PRN (13:54)
[2018-06-22] MEDS ORDERED: PANTOPRAZOLE SODIUM 40 MG VIAL IVP ONE (13:54)
[2018-06-22] MEDS ORDERED: ACETAMINOPHEN 325 MG TAB PO PRN (13:54)
[2018-06-22] MEDS ORDERED: MAGNESIUM HYDROXIDE 30 ML UDCUP PO PRN (13:54)
[2018-06-22] MEDS ORDERED: ACETAMINOPHEN 650 MG SUPP PR PRN (13:54)
[2018-06-22] MEDS ORDERED: D50W 25 GM/50 ML SYR IVP PRN (13:54)
[2018-06-22] MEDS ORDERED: BISACODYL 10 MG SUPP PR PRN (13:54)
[2018-06-22] MEDS ORDERED: INSULIN REGULAR HUMAN 100 UNIT in NS 100 ML IV SCH (14:00)
[2018-06-22] MEDS ORDERED: ceFAZolin 2 GM/DEXTROSE 100 ML IV SCH (14:00)
[2018-06-22] MEDS ORDERED: NS 1,000 ML IV SCH (14:00)
--- NOTE | 2018-06-22 14:11 | PDMN ---
Medical Necessity Medical necessity: 72 yo s/p mitral valve repair, CPT 73365, [facility] 290 Cardiac Valve Replacement or Repair, IP only -. Palpitations, Mitral regurg.
[2018-06-22] MEDS: ALBUMIN 5% 250 ML IV PRN ×2 (15:12→15:38)
[2018-06-22] MEDS: ONDANSETRON 4 MG/2 ML VIAL IVP PRN (16:45)
[2018-06-22] MEDS ORDERED: LEVALBUTEROL 0.63 MG/3 ML DEYVIAL IH PRN (17:00)
--- NOTE | 2018-06-22 17:32 | GCON ---
[f rep st] CONSULTATION PULMONARY CRITICAL CARE CONSULTATION DATE OF CONSULTATION: 06/22/2018 REASON FOR CONSULTATION: COPD, pulmonary hypertension in a patient status post mitral valve repair. HISTORY: The patient is a 72-year-old who is known to our office. She has seen both Dr. Haider and Dr. Morgan. She is followed for COPD, nocturnal hypoxemia, and pulmonary hypertension. She has relat ively severe COPD. Her FEV1 is approximately 1 L, 50% of predicted. FEV1/FVC ratio is also approxim ately 50%, and her DLCO is 50% of predicted. She is on oxygen 2 L at night, but does not use this du ring the day. She has known pulmonary hypertension, secondary. Recent echos have estimated her righ t ventricular systolic pressure to be 60. Her most recent right heart catheterization showed it to b e closer to 50. She underwent mitral valve repair today. She has returned to the intensive care [facility] on the ventilator. She has been placed on CPAP and is weaning acceptably. She is starting to wake up postoperatively. PAST MEDICAL HISTORY: Remarkable for COPD, hypoxemia, pulmonary hypertension, and chronic mitral joanne ve disease followed at [facility]. MEDICATIONS: She is on multiple medications at home, including Spiriva, Advair, albuterol HFA for pu lmonary issues. Non-pulmonary medications, include atenolol, clonidine, potassium, Lasix 20 mg every other day, aspirin, diltiazem, and acitretin. DRUG ALLERGIES: Penicillin. SOCIAL HISTORY: The patient smoked heavily in the past, quit in 2011. Significant alcohol is negati ve. She is retired. No children. FAMILY HISTORY: Noncontributory, unobtainable. REVIEW OF SYSTEMS: Unobtainable currently as patient is on the ventilator. PHYSICAL EXAMINATION: GENERAL: Reveals an elderly woman who is somnolent, but easily arousable. Sh e is appropriately responsive to simple questions. She does not indicate any significant pain, nor s hortness of breath. She is on CPAP currently. VITAL SIGNS: Blood pressure is approximately 120/60, heart rate 80 with sinus rhythm on the monitor. She is on 40% FiO2 with 100% saturations. On CPAP, respiratory rate is 18. She is afebrile. CVP is 4, pulmonary artery pressure is 45/25. Cardiac in dex is 2.0. HEENT: Remarkable for the oral endotracheal tube being in place. Pupils are equal. CH EST: Clear anteriorly. Breath sounds are diminished at the bases. There are no rhonchi, no obvious rales. HEART: Regular in rate and rhythm. There is no obvious gallop. P2 is increased. ABDOMEN: Soft, nontender. Bowel sounds are present, but diminished. : A Dodson catheter is in place. EX TREMITIES: There is no lower extremity edema. NEUROLOGIC: Nonfocal. DATABASE: Chest x-ray postoperatively shows some increase in the size of the cardiac silhouette with increased markings bilaterally, possibly consistent with some volume overload. There is no focal co nsolidation, no pleural effusions. Postop laboratory values are pending. ASSESSMENT: 1. Status post mitral valve repair. This was done minimally invasively. A chest tube is present on the right. Hemodynamics are stable. She is doing well postoperatively. 2. Postoperative respiratory insufficiency, secondary in part to chronic obstructive pulmonary disea se with a possible component of congestive heart failure. She is now weaning. Weaning parameters lo ok good. As she wakes up, she should be able to be extubated without any significant problems. 3. Chronic obstructive pulmonary disease. She does have relatively severe chronic obstructive pulmo nary disease by pulmonary function testing, but would appear to be more moderate by history. She is on oxygen at night. Inhaled medications will be restarted as she wakes up. Xopenex will be given as a bronchodilator by nebulizer. 4. History of other medical problems as outlined above. PLAN AND RECOMMENDATIONS: The patient will be extubated per protocols. I anticipated this can be do ne relatively soon. Her inhaled medications will be continued when she wakes up. Xopenex will be us ed for bronchodilatation to avoid cardiac stimulation. Insulin will be continued by drip per post-op en heart surgery protocols. Adequate pain medications will be maintained. Pantoprazole will be give n for gastrointestinal prophylaxis. Hemodynamics will be followed. Further plans and recommendations will be made based on her progress over the next 12 to 24 hours. /[id number]/MODL
[2018-06-22] MEDS ORDERED: ALBUMIN 5% 250 ML IV PRN (18:02)
[2018-06-22] MEDS: METOCLOPRAMIDE 10 MG/2 ML VIAL IVP PRN (18:04)
--- NOTE | 2018-06-22 18:49 | POSTANESTH ---
Post Anesthetic Evaluation Cardiovascular Status: Normal, Stable, Similar to Pre-Op Cond Respiratory Status: Normal, Stable, Tx Decrease in SpO2 Level of Consciousness/Mental Status: Can Participate in Eval, Mildly Sleepy, Arousable Pain Control: Adequate, Prn Tx Ordered Nausea/Vomiting Control: Adequate, Prn Tx Ordered Complications Possibly Related to Anesthesia: None Noted
[2018-06-22] MEDS: FLUTICASONE/SALMETER 250/50MCG DISKUS IH SCH (20:33)
[2018-06-22] MEDS: MUPIROCIN 2% 22 GM OINT NS SCH (20:37)
[2018-06-22] MEDS: ceFAZolin 2 GM/DEXTROSE 100 ML IV SCH (22:54)
[2018-06-23] MEDS: HYDROCODONE/APAP 5/325 TAB PO PRN ×2 (00:14→06:23)
--- NOTE | 2018-06-23 01:38 | GOP ---
[f rep st] OPERATIVE REPORT DATE OF OPERATION: 06/22/2018 SURGEON: Jaycob Chakraborty MD CNA CAREGIVER: Severo Ayala PA-C PREOPERATIVE DIAGNOSIS: 1. Severe mitral regurgitation. 2. Severe chronic obstructive pulmonary disease. POSTOPERATIVE DIAGNOSIS: 1. Severe mitral regurgitation. 2. Severe chronic obstructive pulmonary disease. PROCEDURE PERFORMED: Robotic assisted mitral valve repair with posteromedial commissuroplasty and an nuloplasty with a 28 mm Physio ring. FINDINGS: INDICATIONS: The patient is a 72-year-old woman with severe COPD and severe mitral regurgitation. S he has noticed a decline in her respiratory status over the last couple of months. This is associate d with increasing fatigue. She underwent echocardiography, which revealed severe mitral regurgitatio n. She was recommended to undergo robotic assisted mitral valve repair. DESCRIPTION OF PROCEDURE: The patient was taken to the operating room and placed on the operating ta ble in a supine position. After the induction of general anesthesia and double-lumen endotracheal tu be intubation, the patient was prepped and draped sterilely. A utility port was created in the 4th i nterspace laterally on the right side of the chest wall while access to the common femoral artery and vein were also obtained on the right side. Next, the ports were placed' left, right and 3rd arms an d once these were placed, access to the right subclavian vein was obtained using the Seldinger techni que. At this point, the patient was heparinized. A 15-Greek Bio-Medicus cannula was placed into th e superior vena cava, and then we sewed an 8 mm cannula graft to the common femoral artery and placed a long 20-Greek QuickDraw venous cannula into the superior vena cava. Cardiopulmonary bypass was i nstituted. It should be noted there were multiple adhesions of the lung throughout the chest and med iastinum. These were ultimately taken down and the pericardium was opened. There were some intraper icardial adhesions as well. The aorta and left atrium were exposed. An antegrade cardioplegia thanh ter was placed. Next, a transthoracic cross-clamp was placed and the heart was arrested with 1 L of del Nido solution. The left atrium was opened, and the valve was inspected. There was some tetherin g of the P3 segment of the posterior leaflet. The remainder of the P1 and P2 were well supported and mobile. The anterior leaflet was normal. We did a posteromedial commissuroplasty for about 30% of the surface area of the valve. Then this was then sized to a 28 mm ring. Sutures were placed around the annulus and the ring was seated without difficulty. The left atrium was then closed, and the cr oss-clamp was removed. The patient was from cardiopulmonary bypass without difficulty and the post pump transesophageal echo shows no residual mitral regurgitation. Protamine was administere d and we began to remove the cannula but the venous cannula appeared to be secured somehow, so we americo eparinized went back on the pump and ascertained a repair stitch placed in the left atrium may have p assed through one of the holes of the cannula, therefore, after arresting the heart, we cut the stitc h, removed the cannula and then repaired the left atrium. She came off cardiopulmonary bypass withou t difficulty. Once off bypass, protamine was again administered. The cannulas were removed from the groin and the venous cannula access site was repaired with a pursestring suture. The graft was rahman sected just above the artery and then oversewn. A 28-Greek chest tube had been placed in the pleura l space on the right side. The ribs were reapproximated with #1 pericostal sutures and the subcutane ous musculature and skin were closed with running Vicryl suture. The patient tolerated this well. /[id number]/MODL
[2018-06-23] MEDS: ONDANSETRON 4 MG/2 ML VIAL IVP PRN ×3 (04:05→14:26)
[2018-06-23] MEDS: ceFAZolin 2 GM/DEXTROSE 100 ML IV SCH ×3 (05:12→21:42)
[2018-06-23 05:13] LABS: PLATELET COUNT 128 10^3/uL (150-400)
[2018-06-23] MEDS: METOCLOPRAMIDE 10 MG/2 ML VIAL IVP PRN ×2 (06:03→15:49)
--- NOTE | 2018-06-23 06:54 | SOAPPROG ---
SOAP Progress Note Assessment/Plan: Assessment: POD#1 Robotic assisted MV repair with posteromedial commissuroplasty and annuloplasty w #28 Physio ring Sx severe MR - Amenable to minimally invasive repair. Hemodynamically stable early postop course. No prolonged vasoactive support. No dysrhythmias. Min fluid overload. AF prophylaxis with CCB. Antithrombotic prophylaxis with full strength ASA. Secondary TR - Surveillance per cards Severe COPD/nocturnal hypoxemia/severe pHTN - Extubated afternoon of surgery without incident. No sig suppl O2 req. Home MDIs, CPAP, pulmonary physiotherapies per pulm. Acute expected blood loss anemia - Stable. No transfusions required. VTE prophylaxis with SCDs. Plan: Routine POD#1 orders re lines, orals and mobility Optimize analgesia with scheduled tylenol and toradol. Tramadol prn breakthrough. Resume home diltiazem Tx to PCU later today 06/23/18 06:51 Subjective: Comfortable from a breathing standpoint. Generally tired. Low grade nausea on narcs. Thirsty and craving some jamal cindy. Objective: Vital Signs Temp Pulse Resp BP Pulse Ox 37 C 85 20 144/52 H 95 06/23/18 06:00 06/23/18 06:00 06/23/18 06:00 06/23/18 06:00 06/23/18 06:00 Laboratory Results 06/23/18 04:55 06/23/18 04:55 06/22/18 06/23/18 06/24/18 05:59 05:59 05:59 Intake Total 1799.3 Output Total 2230 Balance -430.7 Nicardipine overnoc for SBPs > 140, off earlier this am No tachyarrhythmias, rare PVC PADs 20s, CI > 2.5, SVO2 > 80, excellent UOP 2Lpm suppl O2 req CTOP nearing removal criteria CXR -> no PTX, mild pulm vasc congestion, no undrained effusions Labs as expected Physical Exam - Physical Exam General Appearance: alert, no apparent distress Respiratory: lungs clear (grossly), other (rt pleural tube to pleurovac, thin serosang drainage, no air leak) Cardiac/Chest: regular rate, rhythm, other (rt thoracot and rt groin dressings CDI) Peripheral Pulses: 3+: dorsalis-pedis (R), dorsalis-pedis (L) Abdomen: normal bowel sounds, non-tender, soft Skin: warm/dry Extremities: swelling (trace) ICD10 Worksheet Patient Problems: Problems Problem Status Onset S/P mitral valve repair Acute COPD (chronic obstructive pulmonary disease) Acute Dyspnea Acute Hypoxemia Acute Pleural mass Acute chronic disease mgmt/transitional care Acute
[2018-06-23] MEDS: KETOROLAC 15 MG/1 ML SDV IVP SCH ×3 (08:34→18:27)
[2018-06-23] MEDS ORDERED: traMADol 50 MG TAB PO PRN (09:00)
--- NOTE | 2018-06-23 09:28 | ASMTCMCOM ---
CM Note CM Note Notes: Pt is a 72 yo F who underwent mitral valve repair with Dr. Chakraborty. Pt has history of COPD and Pulmonary HTN. Pt has done Pulmonary Rehab in the past and is really motivated to work towards being able to be discharged independently with Cardiac Rehab. She lives in dependently with her . PT/OT/Cardiac Rehab Eval ordered, pending evals. CM to follow. Plan: TBD Date Signed: 06/23/2018 09:27 AM Electronically Signed By:ZHANNA Cordero
[2018-06-23] MEDS: DILTIAZEM 30 MG TAB PO SCH ×2 (10:24→21:15)
[2018-06-23] MEDS: FLUTICASONE/SALMETER 250/50MCG DISKUS IH SCH ×2 (10:25→19:59)
[2018-06-23] MEDS: MUPIROCIN 2% 22 GM OINT NS SCH ×2 (10:26→21:15)
[2018-06-23] MEDS: TIOTROPIUM INHALER 18 MCG/DOSE 5 DOSE/MDI IH SCH (10:26)
[2018-06-23] MEDS: ACETAMINOPHEN 325 MG TAB PO SCH ×2 (11:55→18:27)
--- NOTE | 2018-06-23 13:00 | PDINTPN ---
[employer] Progress Note Assessment/Plan: Assessment: Status post open heart surgery, mitral valve repair. Doing well. Hemodynamics stable. Chest tube remains in place. COPD/hypoxemia. Probably close to baseline. Doing well. On appropriate medications. Oxygen in place at 2 L. Pulmonary hypertension. Secondary. No issues identified. Anemia: Hematocrit stable at 30. Metabolic: Stable Prophalaxis: On pantoprazole, SCDs Plan: Continue oxygen and bronchopulmonary therapies. Transfer to PCU today. 20 min of critical care time spent directly with the patient. Discussed with RT , nursing Objective: Vital Signs Temp Pulse Resp BP Pulse Ox 36.4 C 93 22 H 112/58 L 95 06/23/18 11:56 06/23/18 11:56 06/23/18 11:56 06/23/18 11:56 06/23/18 11:56 Laboratory Results 06/23/18 04:55 06/23/18 04:55 06/22/18 06/23/18 06/24/18 05:59 05:59 05:59 Intake Total 1799.3 Output Total 2230 Balance -430.7 Laboratory Tests 06/23/18 04:55 Calcium 8.1 L Magnesium 2.5 H CXR: Large heart, increased markings, lines and tubes in good position. Physical Exam - Physical Exam General Appearance: alert, no apparent distress, thin EENT: PERRL/EOMI, other (Nasal cannula in place at 2 L) Neck: normal inspection (No JVD) Respiratory: lungs clear, decreased breath sounds, prolonged expiration, other ( Chest tube was small amount of bloody drainage on the right. No air leak.) Cardiac/Chest: regular rate, rhythm, other (Distant heart tones) Abdomen: normal bowel sounds, non-tender, soft Pelvic Exam: other (Dodson catheter in place, good urine output) Skin: warm/dry, pallor Extremities: No pedal edema Neuro/Psych: no motor/sensory deficits, No cognition abnormalities ICD10 Worksheet Patient Problems: Problems Problem Status Onset S/P mitral valve repair Acute chronic disease mgmt/transitional care Acute Pleural mass Acute Hypoxemia Acute Dyspnea Acute COPD (chronic obstructive pulmonary disease) Acute
--- NOTE | 2018-06-23 13:17 | CPEKG ---
Test Reason : OPEN Blood Pressure : / mmHG Vent. Rate : 078 BPM Atrial Rate : 000 BPM P-R Int : 161 ms QRS Dur : 081 ms QT Int : 489 ms P-R-T Axes : 076 062 166 degrees QTc Int : 558 ms Sinus rhythm Abnrm T, consider ischemia, anterolateral lds Prolonged QT interval Confirmed by Jose Pagan ([id number]) on 06/23/2018 1:17:07 PM Referred By: Jaycob Chakraborty Confirmed By:Jose Pagan
[2018-06-23] MEDS: PANTOPRAZOLE SODIUM 40 MG TAB PO SCH (14:26)
[2018-06-23] MEDS: ASPIRIN 81 MG CHEWABLE TAB PO SCH (14:27)
[2018-06-23] MEDS: SENNOSIDES/DOCUSATE SODIUM TAB PO SCH (21:15)
[2018-06-24] MEDS: ACETAMINOPHEN 325 MG TAB PO SCH ×4 (00:16→17:25)
[2018-06-24] MEDS: KETOROLAC 15 MG/1 ML SDV IVP SCH (00:16)
[2018-06-24 05:18] LABS: PLATELET COUNT 116 10^3/uL (150-400)
[2018-06-24] MEDS: ceFAZolin 2 GM/DEXTROSE 100 ML IV SCH (05:29)
[2018-06-24] MEDS ORDERED: DILTIAZEM 25 MG/5 ML VIAL IVP ONE (05:30)
--- NOTE | 2018-06-24 07:55 | SOAPPROG ---
SOAP Progress Note Assessment/Plan: Assessment: POD#2 Robotic assisted MV repair with posteromedial commissuroplasty and annuloplasty w #28 Physio ring Sx severe MR - Amenable to minimally invasive repair. Hemodynamically stable early postop course. No prolonged vasoactive support. 3kg up. Antithrombotic prophylaxis with full strength ASA. Post-op PAF - Intermittent with PVCs. High PVC burden on pre-op Preventice. AF prophylaxis with CCB. Amiodarone avoided in the setting of pre-existing severe pulmonary disease. Secondary TR - Surveillance per cards. Severe COPD/nocturnal hypoxemia/severe pHTN - Extubated afternoon of surgery without incident. No sig suppl O2 req. Home MDIs, CPAP restarted. CXR today concerning for RML atelectasis. Pulm hygiene ordered. Acute expected blood loss anemia with thrombocytopenia - Stable. No transfusions required. VTE prophylaxis with SCDs. PTOT - rec home w o/p cardiac rehab Plan: TTE tomorrow Dc chest tube Poss restart home atenolol Aggressive pulm physiotherapy Gentle PO diuresis w K Subjective: Minimal pain. Breathing stable. Objective: Vital Signs Temp Pulse Resp BP Pulse Ox 36.9 C 90 17 108/59 L 95 06/24/18 07:00 06/24/18 07:00 06/24/18 07:00 06/24/18 07:00 06/24/18 07:00 Laboratory Results 06/24/18 04:45 06/24/18 04:45 06/23/18 06/24/18 06/25/18 05:59 05:59 05:59 Intake Total 1799.3 1890 Output Total 2230 360 25 Balance -430.7 1530 -25 - Physical Exam General Appearance: alert, no apparent distress Respiratory: lungs clear (grossly), other (rt pleural tube to pleurovac, thin serosang drainage, no air leak) Cardiac/Chest: in-and-out of afib, rt thoracot and rt groin dressings CDI Abdomen: non-tender, soft Skin: warm/dry Extremities: swelling (trace) ICD10 Worksheet Patient Problems: Problems Problem Status Onset S/P mitral valve repair Acute COPD (chronic obstructive pulmonary disease) Acute Dyspnea Acute Hypoxemia Acute Pleural mass Acute chronic disease mgmt/transitional care Acute
[2018-06-24] MEDS: PANTOPRAZOLE SODIUM 40 MG TAB PO SCH (08:57)
[2018-06-24] MEDS: SENNOSIDES/DOCUSATE SODIUM TAB PO SCH ×2 (08:57→20:43)
[2018-06-24] MEDS: ASPIRIN 81 MG CHEWABLE TAB PO SCH (09:00)
[2018-06-24] MEDS ORDERED: POTASSIUM CL 10 MEQ TAB PO ONE (09:00)
[2018-06-24] MEDS ORDERED: FUROSEMIDE 20 MG TAB PO ONE (09:00)
[2018-06-24] MEDS ORDERED: AMIODARONE HCL 100 ML IV ONE (09:01)
[2018-06-24] MEDS ORDERED: AMIODARONE HCL 200 ML IV ONE (09:01)
[2018-06-24] MEDS: FLUTICASONE/SALMETER 250/50MCG DISKUS IH SCH ×2 (09:04→20:51)
[2018-06-24] MEDS: TIOTROPIUM INHALER 18 MCG/DOSE 5 DOSE/MDI IH SCH (09:04)
[2018-06-24] MEDS: DILTIAZEM 30 MG TAB PO SCH ×2 (09:12→20:43)
[2018-06-24] MEDS: MUPIROCIN 2% 22 GM OINT NS SCH (09:13)
[2018-06-24] MEDS ORDERED: AMIODARONE HCL 540 MG in D5W 300 ML IV ONE (15:30)
--- NOTE | 2018-06-24 15:50 | SOAPPROG ---
SOAP Progress Note Assessment/Plan: Assessment: Status post open heart surgery, mitral valve repair. New onset atrial fibrillation in the last 24 hr, back in normal sinus rhythm now with amiodarone. Hemodynamics stable. Chest tube remains in place. Increased pulmonary infiltrates. Probably secondary to fluid/congestive heart failure. Will follow with you. Repeat chest x-ray tomorrow. Agree with diuresis and control of atrial fibrillation. COPD/hypoxemia. Probably close to baseline. Doing well. On appropriate medications. Increased O2 requirement to 4 L. Pulmonary hypertension. Secondary. No issues identified. Anemia: Hematocrit slightly lower at 26.7. Follow. Metabolic: Stable Prophalaxis: On pantoprazole, SCDs Plan: Continue oxygen and bronchopulmonary therapies. Continue cardiac medications per CV[facility]. Repeat chest x-ray in a.m. I will continue to follow the patient with you. Subjective: Does not feel as well today. Somewhat more short of breath. Was in atrial fibrillation as well. Denies pain. No fevers, no cough, no mucus. Objective: Vital Signs Temp Pulse Resp BP Pulse Ox 36.7 C 102 H 21 H 154/72 H 92 06/24/18 15:17 06/24/18 15:17 06/24/18 15:17 06/24/18 15:17 06/24/18 15:17 Laboratory Results 06/24/18 04:45 06/24/18 04:45 06/23/18 06/24/18 06/25/18 05:59 05:59 05:59 Intake Total 1799.3 1890 600 Output Total 2230 360 25 Balance -430.7 1530 575 CXR: Increased infiltrate in the right mid lung and left base. Possibly failure, possibly infiltrate/atelectasis? Physical Exam - Physical Exam General Appearance: alert, no apparent distress EENT: PERRL/EOMI, other (Nasal cannula in place at 4 L. ) Neck: normal inspection (No JVD) Respiratory: decreased breath sounds, rales (Rales present primarily on the right, few on the left. No rub, no rhonchi, no significant wheezes), prolonged expiration Cardiac/Chest: tachycardia (Sinus currently, rate approximately 100. Distant heart tones) Abdomen: normal bowel sounds, non-tender, soft Skin: warm/dry, pallor Extremities: pedal edema (Trace +) Neuro/Psych: no motor/sensory deficits, No cognition abnormalities ICD10 Worksheet Patient Problems: Problems Problem Status Onset S/P mitral valve repair Acute COPD (chronic obstructive pulmonary disease) Acute Dyspnea Acute Hypoxemia Acute Pleural mass Acute chronic disease mgmt/transitional care Acute
[2018-06-24] MEDS ORDERED: IPRATROPIUM/ALBUTEROL 3 ML DEYVIAL IH PRN (16:00)
[2018-06-24] MEDS: ONDANSETRON DISINTEGRATING 4 MG TAB PO PRN (18:40)
[2018-06-24] MEDS ORDERED: AMIODARONE HCL 100 ML IV PRN (20:38)
[2018-06-25] MEDS: ACETAMINOPHEN 325 MG TAB PO SCH ×5 (02:21→23:27)
[2018-06-25] MEDS ORDERED: AMIODARONE HCL 100 ML IV ONE (07:16)
[2018-06-25] MEDS ORDERED: POTASSIUM CL 20 MEQ TAB PO ONE ×2 (07:19→09:51)
--- NOTE | 2018-06-25 07:20 | SOAPPROG ---
SOAP Progress Note Assessment/Plan: POD #3: robotic assisted MV repair with posteromedial commissuroplasty and annuloplasty w #28 Physio ring Severe MR s/p repair - Antithrombotic prophylaxis with full strength ASA - CT/FC/AL out Post-op paroxysmal atrial fibrillation - Continue amiodarone - Up-titrate diltiazem as tolerated - CHADS2-VASC 3 - will consider thromboprophylaxis if arrhythmia persistent Severe COPD/nocturnal hypoxemia/severe pHTN - Continue supportive care Acute post-op blood loss anemia - Stable s/p 1U PRBC DVT prophylaxis - SCDs Disposition - PCU - Plan for home Friday Subjective: Denies pain/SOB. Feels weak. Would like to work more with PT/OT. Objective: Vital Signs Temp Pulse Resp BP Pulse Ox 37.1 C 95 20 136/64 H 95 06/25/18 04:00 06/25/18 04:00 06/25/18 04:00 06/25/18 04:00 06/25/18 04:00 Laboratory Results 06/25/18 05:30 06/25/18 05:30 06/24/18 06/25/18 06/26/18 05:59 05:59 05:59 Intake Total 1890 1800 614 Output Total 360 700 Balance 1530 1100 614 Physical Exam - Physical Exam General Appearance: alert, no apparent distress, thin EENT: No scleral icterus (R), No scleral icterus (L) Neck: normal inspection Respiratory: No respiratory distress Cardiac/Chest: tachycardia, irregularly irregular Abdomen: non-tender, soft, No distended Skin: normal color, warm/dry Extremities: pedal edema Neuro/Psych: no motor/sensory deficits, alert, normal mood/affect, oriented x 3 ICD10 Worksheet Patient Problems: Problems Problem Status Onset S/P mitral valve repair Acute COPD (chronic obstructive pulmonary disease) Acute Dyspnea Acute Hypoxemia Acute Pleural mass Acute chronic disease mgmt/transitional care Acute
[2018-06-25] MEDS: DILTIAZEM 60 MG TAB PO SCH ×4 (07:28→23:27)
[2018-06-25] MEDS: TIOTROPIUM INHALER 18 MCG/DOSE 5 DOSE/MDI IH SCH (08:47)
[2018-06-25] MEDS: FLUTICASONE/SALMETER 250/50MCG DISKUS IH SCH ×2 (08:47→21:04)
[2018-06-25] MEDS ORDERED: ALBUTEROL 60 PUFFS/8 GM MDI IH PRN (08:54)
[2018-06-25] MEDS: SENNOSIDES/DOCUSATE SODIUM TAB PO SCH ×2 (09:01→20:29)
[2018-06-25] MEDS: PANTOPRAZOLE SODIUM 40 MG TAB PO SCH (09:04)
[2018-06-25] MEDS: ASPIRIN 325 MG TAB PO SCH (09:04)
[2018-06-25] MEDS ORDERED: FUROSEMIDE 20 MG/2 ML VIAL IVP ONE ×2 (09:51→16:00)
--- NOTE | 2018-06-25 12:14 | ASMTCMCOM ---
CM Note CM Note Notes: 06/25/2018 Case Management Note Met w/pt to discuss d/c needs. Pt Ino can be reached at [phone]. Therapy evals are recommending outpatient cardiac rehab. Pt in agreement. Pt lives with her in her own home. Pt will have significant family support upon discharge. Case Management d/c poc: home w/family support and outpatient cardiac rehab. Case Management will follow. Date Signed: 06/25/2018 12:13 PM Electronically Signed By:Tarah Reyes RN
[2018-06-25] MEDS ORDERED: AZITHROMYCIN 250 MG TAB PO SCH (13:45)
[2018-06-25] MEDS ORDERED: POTASSIUM CL 10 MEQ TAB PO ONE (16:00)
[2018-06-25] MEDS: LEVALBUTEROL 0.63 MG/3 ML DEYVIAL IH SCH ×2 (16:07→21:01)
--- NOTE | 2018-06-25 16:48 | ECHO ---
[email or web address] [address] [address] Main: [phone] Echocardiography Examination Transthoracic Name: NILSON OBANDO MR#: [id number] Study Date: 06/25/2018 Study Time: 07:44 AM Date of : 1945 Age: 72 year(s) Height: 160 cm (63 in.) Weight: 55.34 kg (122 lb.) BSA: 1.57 m2 Gender: Female Examination: Echo Contrast: Image Quality: Rhythm: Atrial fibrillation Heart Rate: 115 bpm BP: 135 mmHg/98 mmHg Indication: Post robotic MVR Procedure Staff Referring Physician: Banking Pin Adjuster: Scott Joiner RDCS Reading Physician: Pattie Valles MD Requesting Provider: Ordering Physician: Severo Ayala Indication: Post robotic MVR Measurements Chambers AV/MV Label Value Normal Value Label Value Normal Value LVOT Vmax 1.01 m/s (0.7m/s - 1.1m/s) AV PGmax 9 mmHg LVOTd 2.1 cm (1.8cm - 2cm) AV PGmean 5 mmHg LVOT VTI 17.4 cm (18cm - 22cm) AV Vmax 1.48 m/s LVDd, 2D 4.2 cm (3.9cm - 5.3cm) SETH (Vmax) 2.4 cm2 LVDs, 2D 2.8 cm (2.1cm - 4cm) SETH (VTI) 2.6 cm2 IVSd, 2D 1 cm (0.6cm - 1.1cm) MV VTI 44 cm LVPWd, 2D 1 cm MVA D (continuity eq.) 1.4 cm2 LVEF, 2D 62 % (54% - 74%) MV PGmax 16 mmHg LVOT PGmean 2 mmHg MV PGmean 5 mmHg LVOT Vmean 0.7 m/s TV/PV Additional Vessels Label Value Normal Value Label Value Normal Value RA Pressure 5 mmHg AoRoot, MM 2.6 cm (2.2cm - 3.7cm) RVSP 46 mmHg TR Pmax 41 mmHg TR Vmax 3.3 m/s PV PGmax 4 mmHg PV Vmax, Caliper 0.94 m/s (0.6m/s - 0.9m/s) Patient: NILSON OBANDO Study Date: 06/25/2018 Page 1 of 2 07:44 AM Conclusions 1. The rhythm is atrial fibrillation. 2. The left ventricle is normal in size and systolic function. Ejection fraction is 65%. No regional wall motion abnormalities. 3. The right ventricle is normal in size and systolic function. 4. Severe left atrial dilation and moderate right atrial dilation. 5. The mitral valve has been repaired. Mean mitral gradient varies between 5 and 10 mm of mercury. Variation is due to atrial fibrillation. There is no mitral regurgitation. 6. Pebu-dw-tauxfnno tricuspid regurgitation with estimated PA systolic pressure 46 mm of mercury. 7. No pericardial effusion. 8. Compared with 04/10/2018 the mitral valve has been repaired. RV systolic pressure is markedly improved, previously 65 mm of mercury. Findings Most of the exam was performed from the subcostal views due to COPD. The rhythm is atrial fibrillation.. Left Ventricle: Left ventricle is normal in size. Normal global systolic left ventricular function. The EF is visually estimated to be 65 %. EF range is estimated at 60 % - 70 %. Left ventricle wall thickness is normal. There are no regional wall motion abnormalities. Right Ventricle: Normal size right ventricle. Right ventricular systolic function is normal. Left Atrium: The left atrium is severely dilated. Right Atrium: The right atrium is moderately dilated. Mitral Valve: The mitral valve has been repaired. The MV PGmean is 5 mmHg. There is no evidence of significant MR.. Aortic Valve: No significant aortic valve regurgitation. There is no aortic stenosis. Aortic leaflets exhibit mild calcification. The aortic valve is trileaflet. Aortic Valve Measurements AV PGmax is 9 mmHg. Tricuspid Valve: Tricuspid valve leaflets are structurally normal. Mild to moderate tricuspid regurgitation. Right Ventricular systolic pressure is measured at 46 mmHg. Pulmonary artery pressure is mildly increased. Pulmonic Valve: Pulmonic leaflets are structurally normal. No pulmonic valve regurgitation is evident. Aorta: The aorta is normal. The aortic root size in M-mode measures 2.6 cm. Aorta Measurements AoRoot, MM is 2.6 cm. Pericardium: No pericardial effusion. Exam Details Procedure Ordered: Echo (No Signature Object) Patient: NILSON OBANDO Study Date: 06/25/2018 Page 2 of 2 07:44 AM [id number]
--- NOTE | 2018-06-25 18:27 | SOAPPROG ---
SOAP Progress Note Assessment/Plan: Assessment: Status post open heart surgery, mitral valve repair. New onset atrial fibrillation in the last 48 hr, back in normal sinus rhythm now with repeat amiodarone bolus. Hemodynamics stable when not in atrial fibrillation. Increased pulmonary infiltrates. Probably secondary to fluid/congestive heart failure. Will follow with you. Continue follow chest x-ray Agree with diuresis and control of atrial fibrillation. Doubt pneumonia clinically, but cannot rule out by x-ray alone. Will follow. COPD/hypoxemia. Probably close to baseline. Doing well. On appropriate medications. Increased O2 requirements at 2 - 4 L. Pulmonary hypertension. Secondary. Improving after valve replacement.. Anemia: Hematocrit slightly lower at 29 post 1 unit of packed red blood cells given yesterday. Follow. Metabolic: Stable Prophalaxis: On pantoprazole, SCDs Plan: Continue oxygen and bronchopulmonary therapies, including nebulized low- dose Xopenex. Continue cardiac medications per [facility]. Follow x-ray, laboratory. Continue control of atrial fibrillation. Gentle diuresis as possible. Discussed with patient, cardiovascular surgery. Subjective: Doing okay, about the same as yesterday. Remains somewhat short of breath compared to her baseline. Denies fevers chills or sweats. No significant cough , not bringing up any phlegm. Objective: Vital Signs Temp Pulse Resp BP Pulse Ox 37.1 C 82 18 127/60 H 92 06/25/18 08:00 06/25/18 16:08 06/25/18 16:08 06/25/18 16:00 06/25/18 16:08 Laboratory Results 06/25/18 05:30 06/25/18 05:30 06/24/18 06/25/18 06/26/18 05:59 05:59 05:59 Intake Total 1890 1800 1590 Output Total 544 299 3616 Balance 1530 1100 340 CXR: About the same as yesterday. Infiltrate is present in the right mid lung and posteriorly in the retrocardiac area/left base. Somewhat more dense today on the right. Echocardiogram: Mitral valve looks good. Normal left ventricular ejection fraction. Improved pulmonary artery pressures: Now approximately 45 Physical Exam - Physical Exam General Appearance: alert, no apparent distress, thin EENT: PERRL/EOMI, other (Nasal cannula in place currently at 6 L, weaning to 3. ) Neck: normal inspection (No JVD) Respiratory: decreased breath sounds (Breath sounds are decreased bilaterally.) , rales (Rales present bilaterally right greater than the left base.), prolonged expiration, No rhonchi Cardiac/Chest: regular rate, rhythm, other (In atrial fibrillation with rapid ventricular response over night. Received more amiodarone.) Skin: warm/dry, pallor Extremities: pedal edema (Trace) Neuro/Psych: no motor/sensory deficits, No cognition abnormalities ICD10 Worksheet Patient Problems: Problems Problem Status Onset S/P mitral valve repair Acute chronic disease mgmt/transitional care Acute Pleural mass Acute Hypoxemia Acute Dyspnea Acute COPD (chronic obstructive pulmonary disease) Acute
[2018-06-25] MEDS: ONDANSETRON DISINTEGRATING 4 MG TAB PO PRN (18:34)
[2018-06-25] MEDS: AMIODARONE HCL 200 MG TAB PO SCH (20:28)
[2018-06-26] MEDS: LEVALBUTEROL 0.63 MG/3 ML DEYVIAL IH SCH ×4 (05:18→20:53)
[2018-06-26] MEDS: DILTIAZEM 60 MG TAB PO SCH ×4 (05:55→23:29)
[2018-06-26] MEDS: ACETAMINOPHEN 325 MG TAB PO SCH ×4 (05:56→23:29)
[2018-06-26] MEDS ORDERED: POTASSIUM CL 20 MEQ TAB PO ONE (07:06)
[2018-06-26] MEDS ORDERED: FUROSEMIDE 40 MG/4 ML VIAL IVP ONE (07:06)
--- NOTE | 2018-06-26 07:07 | SOAPPROG ---
SOAP Progress Note Assessment/Plan: POD #4: robotic assisted MV repair with posteromedial commissuroplasty and annuloplasty w #28 Physio ring Severe MR s/p repair - Antithrombotic prophylaxis with full strength ASA - Post-op ECHO with well-functioning MV - CT/FC/AL out Post-op paroxysmal atrial fibrillation - Continue amiodarone - Up-titrate diltiazem as tolerated - CHADS2-VASC 3 - will consider thromboprophylaxis if arrhythmia persistent Severe COPD/nocturnal hypoxemia/severe pHTN - Continue supportive care Acute post-op blood loss anemia - Stable s/p 1U PRBC DVT prophylaxis - SCDs Disposition - PCU - Plan for home Friday Subjective: [place] RN forced Miralax on her and now she has abdominal cramping. Denies fevers/ chills/pain/SOB/cough. Objective: Vital Signs Temp Pulse Resp BP Pulse Ox 37.1 C 93 17 127/58 H 93 06/26/18 06:54 06/26/18 06:54 06/26/18 06:54 06/26/18 06:54 06/26/18 06:54 Laboratory Results 06/26/18 04:10 06/26/18 04:10 06/25/18 06/26/18 06/27/18 05:59 05:59 05:59 Intake Total 1800 1890 Output Total 700 1850 Balance 1100 40 Physical Exam - Physical Exam General Appearance: WD/WN, alert, no apparent distress EENT: No scleral icterus (R), No scleral icterus (L) Neck: normal inspection Respiratory: No respiratory distress Cardiac/Chest: regular rate, rhythm Abdomen: non-tender, soft, No distended Skin: normal color, warm/dry Extremities: pedal edema Neuro/Psych: no motor/sensory deficits, alert, normal mood/affect, oriented x 3 ICD10 Worksheet Patient Problems: Problems Problem Status Onset S/P mitral valve repair Acute COPD (chronic obstructive pulmonary disease) Acute Dyspnea Acute Hypoxemia Acute Pleural mass Acute chronic disease mgmt/transitional care Acute
[2018-06-26] MEDS: PANTOPRAZOLE SODIUM 40 MG TAB PO SCH (08:16)
[2018-06-26] MEDS: SENNOSIDES/DOCUSATE SODIUM TAB PO SCH ×2 (08:16→20:45)
[2018-06-26] MEDS: ASPIRIN 325 MG TAB PO SCH (08:16)
[2018-06-26] MEDS: AMIODARONE HCL 200 MG TAB PO SCH ×2 (08:16→20:45)
[2018-06-26] MEDS: TIOTROPIUM INHALER 18 MCG/DOSE 5 DOSE/MDI IH SCH (08:17)
[2018-06-26] MEDS: FLUTICASONE/SALMETER 250/50MCG DISKUS IH SCH ×2 (08:18→20:54)
[2018-06-26] MEDS ORDERED: ROSUVASTATIN CALCIUM 10 MG TAB PO SCH (12:00)
--- NOTE | 2018-06-26 13:44 | ASMTCMCOM ---
CM Note CM Note Notes: Per therapy, patient may benefit from SNF rehab at this point in recovery. CM met with patient and her and they express fear over patient going home and believe her state of health to be too weak. We discussed possible SNF at [facility] versus [facility]. High oxygen needs at this time. CM to follow for needs. Referral in allscripts . Plan: Dc to either home with HHC or SNF when medically cleared for discharge. Date Signed: 06/26/2018 01:44 PM Electronically Signed By:Alyssia Richey RN
--- NOTE | 2018-06-26 17:13 | SOAPPROG ---
SOAP Progress Note Assessment/Plan: Assessment: Status post open heart surgery, mitral valve repair. Atrial fibrillation postoperatively, treated with amiodarone, in normal sinus rhythm now. Hemodynamics stable when not in atrial fibrillation. Increased pulmonary infiltrates. Probably secondary to fluid/congestive heart failure. Stable today does slightly better on x-ray. Agree with diuresis and control of atrial fibrillation. Doubt pneumonia clinically, but cannot rule out by x-ray alone. Will follow. COPD/hypoxemia. Probably close to baseline. Doing well. On appropriate medications. Increased O2 requirements at 4 L. Pulmonary hypertension. Secondary. Improving after valve replacement.. Anemia: Hematocrit stable at 29 post 1 unit of packed red blood cells given . Follow. Metabolic: Stable Prophalaxis: On pantoprazole, SCDs Plan: Continue oxygen and bronchopulmonary therapies, including nebulized low- dose Xopenex. Continue cardiac medications per [facility]. Follow x-ray, laboratory. Continue control of atrial fibrillation. Gentle diuresis as possible. Subjective: Feels a little bit better overall. Up in chair. Some dyspnea on exertion persists. No cough, no mucus, no fevers. Objective: Vital Signs Temp Pulse Resp BP Pulse Ox 36.6 C 91 20 106/63 94 06/26/18 15:23 06/26/18 17:08 06/26/18 15:40 06/26/18 16:40 06/26/18 15:40 Laboratory Results 06/26/18 04:10 06/26/18 04:10 06/25/18 06/26/18 06/27/18 05:59 05:59 05:59 Intake Total 1800 1890 1140 Output Total 700 1850 1100 Balance 1100 40 40 CXR: Unchanged to slightly better. Cardiac silhouette remains large, increased markings consistent with fluid retention/congestive heart failure. Physical Exam - Physical Exam General Appearance: alert, no apparent distress, thin, other (Up in chair) EENT: PERRL/EOMI, other (Nasal cannula in place at 4 L) Neck: normal inspection (No JVD) Respiratory: decreased breath sounds (Decreased breath sounds and excursions bilaterally), rales (Bibasilar rales present), prolonged expiration, No rhonchi , No wheezing Cardiac/Chest: regular rate, rhythm, gallop (Cannot rule out a soft gallop), systolic murmur Abdomen: normal bowel sounds, non-tender, soft Skin: normal color, warm/dry Extremities: pedal edema (1+ bilaterally) Neuro/Psych: no motor/sensory deficits, No cognition abnormalities ICD10 Worksheet Patient Problems: Problems Problem Status Onset S/P mitral valve repair Acute chronic disease mgmt/transitional care Acute Pleural mass Acute Hypoxemia Acute Dyspnea Acute COPD (chronic obstructive pulmonary disease) Acute
[2018-06-27] MEDS: LEVALBUTEROL 0.63 MG/3 ML DEYVIAL IH SCH ×2 (05:10→11:37)
[2018-06-27] MEDS: DILTIAZEM 60 MG TAB PO SCH ×2 (05:23→12:29)
[2018-06-27] MEDS: ACETAMINOPHEN 325 MG TAB PO SCH (05:24)
[2018-06-27] MEDS ORDERED: FUROSEMIDE 40 MG/4 ML VIAL IVP ONE (07:06)
[2018-06-27] MEDS ORDERED: POTASSIUM CL 20 MEQ TAB PO ONE (07:06)
--- NOTE | 2018-06-27 07:09 | SOAPPROG ---
SOAP Progress Note Assessment/Plan: POD #5: robotic assisted MV repair with posteromedial commissuroplasty and annuloplasty w #28 Physio ring Severe MR s/p repair - Antithrombotic prophylaxis with full strength ASA - Post-op ECHO with well-functioning MV - CT/FC/AL out Post-op paroxysmal atrial fibrillation - Continue amiodarone - Up-titrate diltiazem as tolerated - CHADS2-VASC 3 - will consider thromboprophylaxis if arrhythmia persistent Severe COPD/nocturnal hypoxemia/severe pHTN - Continue supportive care Acute post-op blood loss anemia - Stable s/p 1U PRBC DVT prophylaxis - SCDs Disposition -Plan for SNF either today or tomorrow -IV diuresis Subjective: Somewhat improved. Objective: Vital Signs Temp Pulse Resp BP Pulse Ox 36.7 C 90 14 135/64 H 93 06/27/18 04:00 06/27/18 05:23 06/27/18 05:10 06/27/18 05:23 06/27/18 05:10 Laboratory Results 06/26/18 04:10 06/27/18 04:05 06/26/18 06/27/18 06/28/18 05:59 05:59 05:59 Intake Total 1890 1290 Output Total 1850 1600 Balance 40 -310 - Physical Exam General Appearance: WD/WN, alert, no apparent distress EENT: No scleral icterus (R), No scleral icterus (L) Neck: normal inspection Respiratory: No respiratory distress, 4 L Cardiac/Chest: regular rate, rhythm in 90s Abdomen: non-tender, soft, No distended Skin: normal color, warm/dry Extremities: pedal edema Neuro/Psych: no motor/sensory deficits, alert ICD10 Worksheet Patient Problems: Problems Problem Status Onset S/P mitral valve repair Acute COPD (chronic obstructive pulmonary disease) Acute Dyspnea Acute Hypoxemia Acute Pleural mass Acute chronic disease mgmt/transitional care Acute
[2018-06-27] MEDS: TIOTROPIUM INHALER 18 MCG/DOSE 5 DOSE/MDI IH SCH (08:09)
[2018-06-27] MEDS: FLUTICASONE/SALMETER 250/50MCG DISKUS IH SCH (08:09)
[2018-06-27] MEDS: ASPIRIN 325 MG TAB PO SCH (08:48)
[2018-06-27] MEDS: SENNOSIDES/DOCUSATE SODIUM TAB PO SCH (08:48)
[2018-06-27] MEDS: AMIODARONE HCL 200 MG TAB PO SCH (08:49)
[2018-06-27] MEDS: PANTOPRAZOLE SODIUM 40 MG TAB PO SCH (08:50)
--- NOTE | 2018-06-27 11:03 | PDDCSUM ---
Discharge Summary Discharge Summary: DATE OF ADMISSION: 06/22/18 DATE OF DISCHARGE: 06/27/18 DISPOSITION: [facility] - [facility] ACTIVITY: Instructed on sternal precautions, activity restrictions, and problems to call [facility]. 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 HISTORY OF PRESENT ILLNESS: This is a pleasant 72F who presented for high-risk elective mitral valve repair. HOSPITAL COURSE BY PROBLEM LIST: Severe MR s/p repair - Pre-op EF 64%. Antithrombotic prophylaxis with full strength ASA. Post-op ECHO with well-functioning MV. Moderate Tricuspid Regurgitation - No intervention performed. Surveillance per Cardiology. Post-op paroxysmal atrial fibrillation - POD#2, asymptomatic with stable blood pressure and heart rates as high as 170. Converted with IV amiodarone. Caution in the setting of severe pulmonary disease. Home diltiazem titrated as well. Severe COPD/nocturnal hypoxemia/severe pHTN - supportive therapies continued by Dr. Shah of [facility]. Right lung atelectasis - appears to originate in the right middle lobe. Question of pneumonia was raised, however clinically, she neither had a profound leukocytosis or febrile. The right lung was isolated during surgery. Acute post-op blood loss anemia - stable s/p 1U PRBC. PERTINENT DISCHARGE CLINICAL INFORMATION: Right thoracotomy/groin incision CDI, no erythema NSR HR 95 BP 114/57 SpO2 96% 6L preop wt 53 kg, discharge wt 55 kg WBC 7.6 Hgb 9.7 Hct 29 Plt 154 Na 136 K 4.1 Cr 0.5 CONSULTANTS: [facility] MEDICATIONS ON [facility]ION: [facility] ALLERGIES/SENSITIVITIES: PCN DISCHARGE MEDICATIONS: CONTINUE your pre-op medications as listed in [facility]. STOP these medications: Atenolol Clonidine Lasix/Klor-Con (frequency change until pre-op weight) ASA (frequency change) Diltiazem (frequency change) NEW medications: Tylenol/Tramadol PRN Amiodarone 200 mg PO BID ASA 325 mg PO daily Diltiazem 60 mg PO q6 hours Lasix 20 mg PO daily Klor-Con 10 mEq PO daily Xopenex 0.63 mg IH QID DuoNebs PRN FOLLOW UP APPOINTMENTS: CV surgery, Dr. Chakraborty, as directed Cardiology, Dr. Mendez, as directed Pulmonary, Dr. Haider, as directed PCP, as directed FOLLOW UP TESTING: CXR prior to surgical appointment
[2018-06-27 11:12] VITALS: BP 114/57
[2018-06-27] MEDS ORDERED: ACETAMINOPHEN 325 MG TAB PO PRN (11:13)
--- NOTE | 2018-06-27 11:22 | PDIAF ---
- Diagnosis Diagnosis: s/p MICS MVR, severe COPD Code Status: Full Code - Medication Management Additional Medication Instructions: When patient returns to baseline weight without symptoms of LE edema - Return to home diuretic therapy Lasix 20 mg PO q2D with Klor-Con 10 mEq PO q2D. Discharge Medications: electronically signed and located in the Home Medication List. PICC Care - Routine: N/A - Orders Services needed: Registered Nurse, Certified [employer], Physical Therapy, Occupational Therapy Isolation Type: None Oxygen: Yes - titrate for SpO2 >90% Diet Recommendation: cardiac -low fat low salt Diet Texture: Regular Texture Diet, Thin Liquids, Meds Whole w/Liquids Weigh Patient: daily [place]: Not applicable Wound Care Instructions: see additional instructions Activity/Weight Bearing Restrictions: see additional instructions Additional Instructions: CARDIAC SURGERY DISCHARGE INSTRUCTIONS Cardiac Rehabilitation Call [facility] cardiac rehab to enroll in phase 2 classes once released from the rehab. Target oxygen saturation > 89%. Adjustments per cardiac rehab. Activity Restrictions Sternal precautions x 4 weeks. Avoid lifting > 10lbs with an outstretched arm. Avoid push/pull activities. No driving for 2 weeks or until cleared by surgery. Avoid prolonged standing or dangling. Elevate legs at rest. Wound Care Cleanse wounds once daily with soap and water. Avoid underwater immersion (pool, hot tub, bath) until scabs off. It is okay to leave all wounds open to air. Avoid creams or ointments until scabs off. Please log daily vital signs and bring to your next clinic visit Daily weight Resting heart rate over 1 minute Blood pressure When to Call [facility] gain > 5lbs or worsening leg swelling. Resting heart rate <60 or >120. Systolic blood pressure consistently <90 or >160. Please obtain a chest xray prior to surgical appointment. Use requisition form attached to appointment card. Chest x-rays don't require an appointment. Go to the Emergency Room entrance at the [facility] location. Sign in at the computer kiosk in the entryway. You will be given a number & may sit in the waiting area until called. You will be registered and directed to Imaging on the 1st floor. This process can take up to an hour. Please allow at least 30 min before your appt to get x-ray taken. Additional Information You may use [id number] medications for iron supplementation, bowel function or pain. You may use Tylenol 500-650 mg with meals and before bed. Max daily dose of Tylenol 3000 mg. You may use Ibuprofen 400-600 mg 3x daily with meals and before bed. Max daily dose 3200 mg. Do not exceed 1 week of regular use of ibuprofen. Lifelong antibiotic prophylaxis prior to dental, respiratory tract, or skin/ soft tissue procedures. - Labs/Radiology BMP Date: 06/29/18 (results to [facility]) Imaging Orders: CXR prior to appt at [facility] Call or Fax Lab and Imaging Results to: [facility] Attn: Maylin Kim; Please bring VS/Labs report to clinic appt - Follow Up Care Current Providers and Referrals: Jaycob Chakraborty MD [Medical Doctor] - 07/08/18 9:30 am Carla Perez MD [Primary Care Provider] - Aaron Mendez MD [Medical Doctor] -
--- NOTE | 2018-06-27 11:48 | ASMTLACE ---
STIVEN Length of stay for Answers: 4-6 days current admission Acuity / Level of Answers: Yes Care: Did the patient have an inpatient admission? Comorbidities - select Answers: Chronic pulmonary disease all that apply Congestive heart failure Coronary Artery Disease Other Notes: HTN # of Emergency department Answers: 0 visits in the last 6 months Social determinants Answers: Mental health diagnosis (anxiety, depression, pers onality disorders, etc.) Score: 17 Date Signed: 06/27/2018 11:47 AM Electronically Signed By:Alyssia Richey RN
--- NOTE | 2018-06-27 11:57 | ASMTDCNOTE ---
Case Management Discharge Discharge Order Complete? Answers: Yes Patient to Obtain Answers: Other Notes: [facility] Medications Transportation Arranged Answers: Other Notes: wheelchair Van Transport will Pick (Date 06/27/2018 01:30 AM & Time) Faxed Final Orders Answers: Yes Agency/Facility Transfer Answers: Yes Report Printed & Faxed to Receiving Agency Family Notified Answers: Yes Discharge Comments Notes: Patient medically cleared for SNF discharge today. Final orders via allscripts. RN to call report. CM available should other needs arise. Date Signed: 06/27/2018 11:56 AM Electronically Signed By:Alyssia Richey RN
[2018-06-28] MEDS ORDERED: FUROSEMIDE 20 MG TAB PO SCH (09:00)
[2018-06-28] MEDS ORDERED: POTASSIUM CL 10 MEQ TAB PO SCH (09:00)
== END 2018-06-27 13:50 | DRG 220 ==
LOC: F3E 05:52 → F2N 14:15 → F2W 06-23 15:26
PROVIDERS: ADMIT Thoracic Surgery (Cardiothoracic Vascular Surgery); ATTEND Thoracic Surgery (Cardiothoracic Vascular Surgery)
PROC: 8E0W0CZ Robotic Assisted Procedure of Trunk Region, Open Approach (ICD-10-PCS; principal; 2018-06-22 07:15)
PROC: 02UG0JZ Supplement Mitral Valve with Synthetic Substitute, Open Approach (ICD-10-PCS; principal; 2018-06-22 07:15)
PROC: 5A1221Z Performance of Cardiac Output, Continuous (ICD-10-PCS; principal; 2018-06-22 07:15)
PROC: 30233N1 Transfusion of Nonautologous Red Blood Cells into Peripheral Vein, Percutaneous Approach (ICD-10-PCS; 2018-06-22 07:15)
DX: I34.0 Nonrheumatic mitral (valve) insufficiency (principal); J44.1 Chronic obstructive pulmonary disease with (acute) exacerbation; D62 Acute posthemorrhagic anemia; J98.11 Atelectasis; I48.0 Paroxysmal atrial fibrillation; I36.1 Nonrheumatic tricuspid (valve) insufficiency; I27.21 Secondary pulmonary arterial hypertension; I10 Essential (primary) hypertension; I25.10 Atherosclerotic heart disease of native coronary artery without angina pectoris; G47.33 Obstructive sleep apnea (adult) (pediatric); E78.5 Hyperlipidemia, unspecified; Z87.891 Personal history of nicotine dependence
CPT/HCPCS: 82435-PO; 82565-PO; 82947-PO; 83605-ER; 84132-PO; 84295-PO; 84520-PO; 85014-ER; 86850-90; 86860-90; 86870-90; 86922-90; 97116-GP; 97161-GP; 97166-GO; 97530-GP; 97535-GO; 99001-90; C1768; J0153; J0282; J0690; J1100; J1250; J1265; J1644; J1815; J1885; J1940; J2001; J2150; J2250; J2260; J2270; J2370; J2405; J2704; J2720; J2765; J2930; J3010; J3475; J3480; P9016; P9041

== ENCOUNTER → 2018-07-08 | Outpatient (CLI) | payer OTHER, MEDICARE | LOC: FLAB 07:34 ==